=== PATIENT | female | born 1960 | race Caucasian/White ===

== ENCOUNTER → 2018-01-19 | Outpatient (CLI) | payer OTHER ==
[2018-01-19 12:31] VITALS: BP 156/75; PULSE 69; RESP 18; TEMP 97.8
--- NOTE | 2018-01-20 09:22 | P.PAINCN ---
History of Present Illness - Reason for Consult Consult date: 01/19/18 - History of Present Illness This is the initial consultation visit for this 57 years old female with chronic history of severe low back pain, and neck pain, she reported that the pain started 2 years ago , after she came home from work, while she was bending over to take off, her shoes She felt a pop in her back, and then she started feeling severe low back pain and numbness and tingling sensation, and physical therapy and also she had interventional pain procedure done at different pain clinic, without any benefit , she continued to have severe pain intensity of the pain fluctuates between 7/ 10 with rest , increases to 10 hours and with any activity, the pain interfering with her quality of life and ability to function and do activity of daily livings, she had no fever or night sweats, she denies any change in the bowel movement or urination, and the current medication is helping only slightly to improve her pain, she was evaluated by a neurosurgeon, and recommended to try interventional pain procedure again. Past Medical History Past Medical History: COPD, Musculoskeletal Disorder, Osteoarthritis (OA) Additional Past Medical History / Comment(s): LUMBAR AND NECK PAIN, STATES BULDGING AND HERNIATED DISCS, DDD, USES CANE PRN., HX OF NICKED BOWEL WITH SURGERY AND WAS ON LIFE SUPPORT FOR 1 WEEK. ([place] 2005). History of Any Multi-Drug Resistant Organisms: None Reported Past Surgical History: Appendectomy, Hysterectomy Additional Past Surgical History / Comment(s): OOPHERECTOMY WITH NICKED BOWEL AND HAD COLOSTOMY AND THEN REVERSAL., LAPAROSCOPY, C-SEC X2. Past Anesthesia/Blood Transfusion Reactions: No Reported Reaction Past Psychological History: Anxiety, Depression Smoking Status: Current every day smoker Past Alcohol Use History: None Reported Additional Past Alcohol Use History / Comment(s): STARTED SMOKING AGE 13, SMOKES 1 PPD. SMOKING FOR 46 YEARS ON AND OFF. Past Drug Use History: Marijuana Additional Drug Use History / Comment(s): RECENT MARIJUANA USE. - Past Family History Mother Family Medical History: No Reported History Medications and Allergies Home Medications Medication Instructions Recorded Confirmed Type Ascorbic Acid [Vitamin C] 1,000 mg PO DAILY 01/18/18 01/19/18 History Aspirin [Adult Low Dose Aspirin EC] 81 mg PO DAILY 01/18/18 01/19/18 History Cholecalciferol [Vitamin D3] 1,000 unit PO DAILY 01/18/18 01/19/18 History Cyclobenzaprine [Flexeril] 10 mg PO TID PRN 01/18/18 01/19/18 History DULoxetine HCL [Cymbalta] 90 mg PO DAILY 01/18/18 01/19/18 History Gabapentin [Neurontin] 600 mg PO TID 01/18/18 01/19/18 History HYDROcodone/APAP 5-325MG [[place] 1 tab PO Q6HR PRN 01/18/18 01/19/18 History 5-325] Magnesium 500 mg PO DAILY 01/18/18 01/19/18 History traMADol HCL [Ultram] 50 mg PO TID PRN 01/18/18 01/19/18 History Allergies Allergy/AdvReac Type Severity Reaction Status Date / Time No Known Allergies Allergy Verified 01/19/18 12:19 Physical Exam Vitals: Vital Signs Temp Pulse Resp BP Pulse Ox 01/19/18 12:22 97.8 F 69 18 156/75 97 Social history : smoker , NO ETOH , NO Illegal drugs use . Family history : positive for Review of Systems : 1- Constitutional : no chills , no fever , no night sweats , 2- Ears : no ear discharge , no change in hearing 3-Nose, Mouth ,Throat ; no bleeding gums, no sore throat , no epistaxis , 4-Cardiovascular : Denies chest pain, , no orthopnea , no palpitation 5-Respiratory : Denies cough , no dyspnea , no hemoptysis 6-Gastrointestinal :, no change in bowel habits , no coffee- ground emesis . 7-Genitourinary : No hematuria , no discharge , no incontinence, 8-Musculoskeletal : ++ gait dysfunction , report low back pain , report neck pain , 9- Neurological : no ataxia , no tremor , no sezure , 10-Psychatric , no suicidal ideation no hallucination 11- Endocrine : no cold intolerence , no polyuria , no polydypsia , 12-Hematologic : no easy bleeding , no easy brusing , 13-Allergic / immunology : no angioedema , no wheezing ,no allergic rhinitis 14-Integumentary : no brttle nails , no change hair / nails , no foot/leg ulcers . Physical Examinations : 1-Constitutional : Cooperative , not in acute distress . 2-HEENT : nech ; supple , no Lymphadenopathy , no Thyromegaly , :eyes , no icterus, no photophobia . ENT : , normal oropharynx , no Thrush 3- Respiratory : Chest clear to auscultations Bilaterally , no wheezing . 4- Cardiovascular : regular rate and rhythem , S1 , S2 , no S3 , no S4. 5- Gastrointestinal: abdomen soft no tenderness , no organomegally . 6- Genitourinary : Defferred . 7-Integumentary : No cellulitis , no ulcers , normal skin turgor , no cyanotic . 8- neurologic : Cranial nerve II to XII intact , no focal neurological deffecit 9-psychatric : alert , oriented X 3 , appropriate affect , intact judgment and insight . 10-Lymphatic : no Lymphadenopathy. 11- musculoskeltal: normal gait Cervical Spine motor stregnth in the deltoid and biceps, normal right side , normal Left side motor stregnth biceps and the wrist extensors normal right side ,normal left side . motor stregnth in the triceps muscle . normal Right side , normal Left side deep tendon reflexes normal at the biceps , normal at Brachioradialis , normal at triceps. positive cervical facet loading test . Lumber spine moter stegnth lower extremities ,thigh and legs 4/5 Right side , 4/5 Left side deep tendon reflexes : normal Knee Jerk , normal ankle Jerk positive lumber facet Loading Test Range of motion of the lumbar spine Flexion 30 degrees, extension 10 degrees strait leg raising test , positive at 30 degree Fabere test positive RT and positive LT . Sever tenderness over the Sacroiliac joint on the R and L sides Results Comments: MRI of the lumbar spine lumbar facet arthropathy and lumbar degenerative disc disease mainly at L4-L5 Assessment and Plan Plan: Assessment and plan=1-lumbar spondylosis with lumbar facet arthropathy without myelopathy, 2-lumbar radiculopathy. she will be scheduled to have lumbar diagnostic medial branch block at L43/L4 5/L5-S1 and if she had good result then she will be good candidate to have radiofrequency ablation of the medial branch lumbar area. Procedure risks and benefits and alternatives discussed with the patient she agreed with the preceding, patient should continue to get her pain medication ,from her primary care Time with Patient: Greater than 30 PQRS Measure Charge Sheet Measure #130: Documentation of Current Meds in Medical Chart: Patient's medications documented in chart Measure #226: Tobacco Use: Screen & Cessation Intervention: Pt screened for tobacco use AND intervention given Measure #111: Pneumonia Vaccination: Pneumococcal vaccine NOT administered or previously given Measure #47: Advance Care Plan: Advance care planning discussed & documented, pt chose/unable to give Measure #412: Opioid Treatment Agreement: No documentation of signed opioid treatment agreement Measure #408: Opioid Therapy Follow-up Evaluation: Patient had NO f/u eval minimum every 3 months during opioid therapy Measure #317: Preventitive Care & Scrn High Bld Press & F/U: Pre-hypertensive or hypertensive BP documented, pt will f/u with PCP Measure #128: Body Mass Index (BMI) Screening & Follow-up: BMI documented ABOVE normal parameters - f/u documented Measure #131: Pain Assessment & Follow-up: Pain positive & plan documented, Follow-up scheduled Measure #431: Unhealthy Alcohol Use Preventative Care & Scrn: Patient not identified as an unhealthy alcohol user PQRS Narrative: Smoking Status Current every day smoker Do You Want the Pneumonia No Vaccine AT THIS TIME? Blood Pressure 156/75 Pain Intensity [Neck] 8 Pain Intensity [Lower Back] 8 Scale Used Numeric (1 - 10) Hx Alcohol Use (MH) No Home Medications: Ambulatory Orders Ascorbic Acid [Vitamin C] 1,000 mg PO DAILY 01/18/18 Aspirin [Adult Low Dose Aspirin EC] 81 mg PO DAILY 01/18/18 Cholecalciferol [Vitamin D3] 1,000 unit PO DAILY 01/18/18 Cyclobenzaprine [Flexeril] 10 mg PO TID PRN 01/18/18 DULoxetine HCL [Cymbalta] 90 mg PO DAILY 01/18/18 Gabapentin [Neurontin] 600 mg PO TID 01/18/18 HYDROcodone/APAP 5-325MG [[place] 5-325] 1 tab PO Q6HR PRN 01/18/18 Magnesium 500 mg PO DAILY 01/18/18 traMADol HCL [Ultram] 50 mg PO TID PRN 01/18/18
== END | disposition home or self-care (01) ==
LOC: PNWHC3 12:11
PROVIDERS: ATTEND Specialist
DX: M47.26 Other spondylosis with radiculopathy, lumbar region (principal); M46.96 Unspecified inflammatory spondylopathy, lumbar region; F17.200 Nicotine dependence, unspecified, uncomplicated; Z79.899 Other long term (current) drug therapy; Z79.82 Long term (current) use of aspirin; Z79.891 Long term (current) use of opiate analgesic
CPT/HCPCS: 99211

== ENCOUNTER 2018-02-04 09:28 | Day surgery (SDC) | payer OTHER ==
[2018-01-29 12:02] VITALS: BMI 27.8
[~2018-02-04 09:28] MED LIST: LACTATED RINGERS 1,000 ML IV SCH
[2018-02-04 09:58] VITALS: RESP 16; TEMP 97.9
[2018-02-04] MEDS ORDERED: LIDOCAINE 1% 20 ML VIAL (10MG/ML) FOR IV START INTRADERMA ONE (10:08)
--- NOTE | 2018-02-04 10:44 | P.PCN ---
Date of Procedure: 02/04/18 Surgeon: Dixie Trujillo Pathology: none sent Condition: stable Disposition: PACU Description of Procedure: REOPERATIVE DIAGNOSIS : 1- Lumbar spondylosis with Facet Arthropathy without myelopathy . 2- Lumber degenerative disc disease POSTOPERATIVE DIAGNOSIS: 1- Lumbar spondylosis with Facet Arthropathy without myelopathy . 2- Lumber degenerative disc disease PROCEDURE: Diagnostic bilateral , L4 -5 , and L5-S1 medial branch block under fluoroscopy ANESTHESIA: Local with 1% lidocaine; IV moderate sedation sedation with fentanyl . EBL: Negligible COMPLICATION: None. PROCEDURE INDICATION: Chronic low back pain secondary to Facet arthropathy unresponsive to conservative treatment. PROCEDURE DESCRIPTION: the patient was seen and identified in the preop holding area , risks and benefits and possible complications of the procedure and alternatives were discussed with the patient, and the patient agreed to proceed with the procedure and signed the consent. IV was started and vital signs monitored during the procedure and fluoroscopy was used to maximize the benefit and accuracy of the needle placement, sedation was given to decrease patient anxiety, patient was taken to the procedure room and placed in prone position vital signs monitored. The patient was brought into the procedure room and placed in prone position. Skin was prepped with Chloraprep and draped in a sterile manner. Lidocaine 1 % was used to numb the skin up at the target points that were chosen as follows : at the L5-S1 level which corresponds to the dorsal ramus of L5 the target points were at the superior medial aspect of the sacral ala on each side of the spine on the AP view of fluoroscopy, and for the L3 and L4 medial branches the target points were the connection between the transverse process and the superior to go process of L4 and L5 respectively on the oblique views of fluoroscopy. I used 22-gauge 3-1/2 inch Quincke spinal needles for this procedure and after contacting bone at the target points mentioned above I injected 1 mL of a mixture of Kenalog 40 mg +5 MLS of Ropivacaine 0.5% PF . Patient tolerated procedure well. At the end of the procedure the needles removed and a bandage applied after the skin was cleaned the cleaning solution. patient was then taken to the recovery room in stable condition and monitored in the recovery room for 20-30 minutes and discharged home in stable condition after discharge criteria met .
[2018-02-04] MEDS ORDERED: IV FLUID CONTINUATION 800 ML IV ONE (10:51)
--- NOTE | 2018-02-04 11:02 | FL ---
EXAMINATION TYPE: FL guided pain mgmt statistic DATE OF EXAM: 02/04/2018 HISTORY: Flouroscopy time 6 seconds of fluoroscopy provided. IMPRESSION: 1. Fluoroscopy time.
[2018-02-04 11:09] VITALS: BP 114/67; PULSE 64
== END 2018-02-04 11:28 | disposition home or self-care (01) ==
LOC: ORPAIN 09:28
PROVIDERS: ATTEND Anesthesiology
DX: G89.29 Other chronic pain (principal); M47.816 Spondylosis without myelopathy or radiculopathy, lumbar region; M51.36 Other intervertebral disc degeneration, lumbar region
CPT/HCPCS: 64493; 64494; J3301; J3010

== ENCOUNTER → 2018-02-18 | Day surgery (SDC) | payer OTHER ==
[2018-02-11 16:27] VITALS: BMI 27.8
[~2018-02-18] MED LIST changes: -LACTATED RINGERS 1,000 ML IV SCH; +SODIUM CHLORIDE 0.9% 500 ML 500 ML IV SCH
[2018-02-18 07:27] VITALS: RESP 18; TEMP 98
--- NOTE | 2018-02-18 09:08 | P.PCN ---
Date of Procedure: 02/18/18 Procedure(s) Performed: PREOPERATIVE DIAGNOSIS : 1- Lumbar spondylosis with Facet Arthropathy without myelopathy . POSTOPERATIVE DIAGNOSIS: 1- Lumbar spondylosis with Facet Arthropathy without myelopathy . PROCEDURE: Diagnostic bilateral L3 -4 , L4 -5 , and L5-S1 medial branch block under fluoroscopy ANESTHESIA: moderate sedation with intravenous Versed 2 mg . EBL: Minimal COMPLICATION: None. IV FLUIDS: 100 mL of normal saline. PROCEDURE INDICATION: Chronic low back pain secondary to Facet arthropathy unresponsive to conservative treatment. PROCEDURE DESCRIPTION: the patient was seen and identified in the preop holding area , risks and benefits and possible complications of the procedure and alternative were discussed with the patient, and the patient agreed to proceed with the procedure and signed the consent IV was started and vital signs monitored during the procedure and fluoroscopy was used to maximize the benefit and accuracy of the needle placement, and sedation was given to decrease patient anxiety, patient was taken to the procedure room and placed in prone position vital signs monitored in the back prepped with chlorhexidine X3 then under strict sterile technique using a right oblique fluoroscopy ,the junction of the transverse process and the superior articulating process of the right L3- 4 , L4- 5, and L5-S1 vertebra which corresponding to the fluoroscopy image of the eye of the Sacha dog on the block side for the medial branches and subsequently , after local infiltration of skin and subcu tissuies with Ropivacaine 0.5 % , one mL at each level , then 25-gauge Quincke-type needles , 3 needle was used , each one of them placed at the junction of the base of the transverse process and the superior articular process at the appropriate level, and the needle was advanced until the periosteum contacted, needle placement confirmed with AP oblique and lateral view and after appropriate needle placement confirmed, and after negative aspiration for heme and CSF and there was no paresthesia 1-1/2 mL of Ropivacaine 0.5% mixed with 20 mg Kenalog , then half mL injected at each level after negative aspiration the needle subsequently removed and the same procedure repeated for the left side at left side at L3-4, L4- 5 and L5-S1 levels. At the end of the procedure and the needles removed and a bandage applied after the skin was cleaned the cleaning solution patient taken to recovery room in stable condition and monitors in the recovery room for 20-30 minutes and discharged home in stable condition after discharge criteria met and patient will follow up with the pain clinic in 2-4 weeks
--- NOTE | 2018-02-18 09:25 | FL ---
EXAMINATION TYPE: FL guided pain mgmt statistic DATE OF EXAM: 02/18/2018 HISTORY: Flouroscopy time 9 seconds of fluoroscopy provided. IMPRESSION: 1. Fluoroscopy time.
[2018-02-18 09:58] VITALS: PULSE 68
[2018-02-18 10:01] VITALS: BP 136/65
== END ==
LOC: ORPAIN 06:56
PROVIDERS: ATTEND Specialist
DX: G89.29 Other chronic pain (principal); M47.816 Spondylosis without myelopathy or radiculopathy, lumbar region
CPT/HCPCS: 64493; 64494; 64495; J2250; J3301; 99152

== ENCOUNTER → 2018-03-22 | Outpatient (CLI) | payer OTHER ==
[2018-03-22 14:09] VITALS: BP 165/81; PULSE 76; RESP 16
--- NOTE | 2018-03-22 14:12 | P.PN ---
Subjective Progress Note Date: 03/22/18 Principal diagnosis: Lumbar spondylosis Radha presents for follow-up today after having 2 medial branch blocks of her lumbar spine. She reports she had excellent relief for about 4-5 days. During that time she reports that a lot of her back pain was significantly better and numbness and tingling in her upper thighs significantly improved but she continued to have numbness and tingling in her lower legs. She reports that she 's had repetitive frequency ablation done in the past and a different clinic, had good improvement and is inquiring about that at this time. She continues of low back pain which is worse with worsened extension and flexion of the lumbar spine. Reports numbness and tingling bilateral lower extremities from the knees down and sometimes in the thighs. She denies any weakness in her legs. Denies any bowel or bladder discomfort or incontinence. Objective - Vital Signs Vital signs: Vital Signs Temp Pulse 76 03/22/18 14:03 Resp 16 03/22/18 14:03 BP 165/81 03/22/18 14:03 Pulse Ox 98 03/22/18 14:03 Intake & Output 03/21/18 03/22/18 03/22/18 18:59 06:59 18:59 Weight 68.946 kg - Exam General: Awake and alert oriented 3 no distress Respiratory exam: No audible wheezing no accessory muscle usage Cardiovascular exam: regular rate, palpable bilateral pulses, no lower extremity edema Abdominal exam: No distention nontender to palpation Cervical spine: Normal alignment, Spurling's negative, facet loading negative Lumbar spine: Loss of lumbar lordosis, normal alignment, tender to palpation over bilateral paraspinal muscles, facet loading is positive bilaterally. Straight leg raise is negative. Sacroiliac joints: Nontender to palpation, ANUP is negative, Gaenselon negative Neuro exam: Normal sensation in bilateral upper extremities, deep tendon reflexes are 2+ bilateral upper extremities. Normal sensation in bilateral lower extremities. Deep tendon reflexes are 2+ in lower extremities Psych exam: Cooperative, appropriate mood Assessment and Plan Assessment: Lumbar spondylosis without myelopathy Plan: Discussed with the patient the risks benefits and alternatives to having radiofrequency ablation of the lumbar spine. The patient is in agreement like to move forward with the radiofrequency ablation. I discussed with the patient that she should continue to exercise daily and move freely after the radiofrequency ablation in order to avoid having surgery as she has requested. I will offer her physical therapy which she reports she still has home exercises to be done from her previous physical therapy session Time with Patient: Less than 30
== END | disposition home or self-care (01) ==
LOC: PNWHC3 13:24
PROVIDERS: ATTEND Hospitalist
DX: M47.816 Spondylosis without myelopathy or radiculopathy, lumbar region (principal)
CPT/HCPCS: 99211

== ENCOUNTER 2018-04-12 06:54 | Day surgery (SDC) | payer OTHER ==
[2018-04-08 13:50] VITALS: BMI 27.6
[2018-04-12] MEDS ORDERED: LACTATED RINGERS 1,000 ML IV ONE (07:25)
[2018-04-12] MEDS ORDERED: LIDOCAINE 1% 20 ML VIAL (10MG/ML) FOR IV START INTRADERMA ONE (07:25)
[2018-04-12 07:29] VITALS: RESP 17; TEMP 98.4
--- NOTE | 2018-04-12 08:29 | P.PCN ---
Date of Procedure: 04/12/18 Procedure(s) Performed: PREOPERATIVE DIAGNOSIS: 1-Lumbar Spondylosis with Facet Arthropathy without myelopathy. POSTOPERATIVE DIAGNOSIS: 1- Lumbar Spondylosis with Facet Arthropathy without myelopathy. PROCEDURES : Left Radiofrequency thermocoagulation, L3-L4, L4-L5, and L5-S1 medial branch, with fluoroscopic guidance ANESTHESIA: Moderate sedation with intravenous versed 2 mg and fentaneyl 100 mcg, and local infiltration with Ropivacaine 0.5 % . EBL: Minimal PROCEDURE INDICATION: The patient with low back pain secondary to lumbar facet arthropathy who had more than 50% relief of her pain with previous diagnostic lumbar medial branch block with bupivacaine. PROCEDURE DESCRIPTION / TECHNIQUE: The patient was seen and identified in the preoperative area. Risks, benefits, complications, including but not limited to risk of infection ,bleeding , allergic reactions to the medications and no complete pain releife , and alternatives were discussed with the patient, the patient agreed to proceed with the procedure and signed the consent. IV was started. Vital signs remained stable throughout the procedure. Patient was taken to the OR and time out was completed. The patient was placed in the prone position on the procedure table. The lumber area was prepped and draped in the usual sterile fashion. . Vital signs were closely monitored during the procedure .IV sedation was used during the procedure to decrease patients anxiety. Using AP and then oblique fluoroscopy, the ``eye of the Sacha dog corresponding to the connection between the superior and transverse articular processes of left L3, L4, and L5 were identified, marked, and localized with 1 % lidocaine. Subsequently, a 18 [id number] radiofrequency cannula with a 10- mm active tip was advanced guided by fluoroscopy to each of the``eyes of the Sacha dog at left L3, L4, and L5. Each site then underwent sensory testing at 50 Hz and 0 to 1 volt and motor testing at 2.5 Hz and 0 to 3 volt with local stimulation, but no radicular symptoms down the legs. Thereafter the left L3-4, L4-5, and L5-S1 sites underwent radiofrequency thermocoagulation at 80 degrees celsius for 90 seconds after injecting 0.5 ml of PF Ropivacaine 1ml, then after the thermocoagulation done , 1 ml of the block solution containing Kenalog 40 mg and 3 ml of Ropivacaine 0.5% was injected at the left L3-4 , L4 -5 , and L5-S1, levels after negative aspiration of CSF and blood and with no paresthesias. Cannulas were retracted while injecting lidocaine 1% until the needle is out. . At the end of the procedure, the skin was cleansed and bandages were applied. COMPLICATIONS: No acute complications. DISPOSITION / PLANS: The patient was placed in a supine position and transferred to the recovery area in a stable condition for observation and was discharged from the recovery room after meeting discharge criteria. Home discharge instructions given to the patient by the staff. The patient was reexamined prior to discharge. The patient will schedule a follow up in the clinic in 2-4 weeks.
[2018-04-12] MEDS ORDERED: IV FLUID CONTINUATION 1,000 ML IV ONE (08:33)
--- NOTE | 2018-04-12 08:37 | FL ---
EXAMINATION TYPE: FL guided pain mgmt statistic DATE OF EXAM: 04/12/2018 HISTORY: Flouroscopy time 6 seconds of fluoroscopy provided. IMPRESSION: 1. Fluoroscopy time.
[2018-04-12 08:49] VITALS: BP 120/76; PULSE 75
== END 2018-04-12 09:03 | disposition home or self-care (01) ==
LOC: ORPAIN 06:54
PROVIDERS: ATTEND Specialist
DX: M47.816 Spondylosis without myelopathy or radiculopathy, lumbar region (principal)
CPT/HCPCS: 64635; 64636 ×2; J2250; J3301; J3010; 99152

== ENCOUNTER 2018-05-05 08:23 | Day surgery (SDC) | payer OTHER ==
[2018-04-28 15:34] VITALS: BMI 27.6
[2018-05-05 09:13] VITALS: RESP 16; TEMP 97.6
[2018-05-05] MEDS ORDERED: LIDOCAINE 1% 20 ML VIAL (10MG/ML) FOR IV START INTRADERMA ONE (09:14)
[2018-05-05] MEDS ORDERED: LACTATED RINGERS 1,000 ML IV ONE (09:14)
--- NOTE | 2018-05-05 10:21 | P.PCN ---
Date of Procedure: 05/05/18 Surgeon: Dixie Trujillo Pathology: none sent Condition: stable Disposition: PACU Description of Procedure: PREOPERATIVE DIAGNOSIS: Lumbar spondylosis without myelopathy POSTOPERATIVE DIAGNOSIS: Lumbar spondylosis without myelopathy PROCEDURES : Right Radiofrequency thermocoagulation L3-L4, L4-L5, and L5-S1 medial branch, with fluoroscopic guidance ANESTHESIA: IV moderate conscious sedation with versed and fentanyl and local infiltration with lidocaine 1% 5 ml EBL: Minimal PROCEDURE INDICATION: The patient with low back pain secondary to lumbar facet arthropathy who had more than 50% relief of her pain with previous diagnostic lumbar medial branch block with bupivacaine. PROCEDURE DESCRIPTION / TECHNIQUE: The patient was seen and identified in the preoperative area. Risks, benefits, complications, including but not limited to risk of infection ,bleeding , allergic reactions to the medications and no complete pain relief , and alternatives were discussed with the patient, the patient agreed to proceed with the procedure and signed the consent. IV was started. Vital signs remained stable throughout the procedure. Patient was taken to the OR and time out was completed. The patient was placed in the prone position on the procedure table. The lumber area was prepped and draped in the usual sterile fashion. . Vital signs were closely monitored during the procedure .IV sedation was used during the procedure to decrease patients anxiety. The target points were identified as follows: For the L5-S1 level which corresponds to the dorsal ramus of L5 the target point was at the superior medial aspect of the sacral ala on the ---Rt- side of the spine on the AP view of fluoroscopy and for the L2, L3, and L4 medial branches the target points were at the connection between the transverse process and the superior articular process of L3, L4, and L5 vertebra respectively on the -Rt--- oblique view of fluoroscopy. skin was marked, and localized with 1% lidocaineat these points. Subsequently, an 18 [id number] radiofrequency needles with a 10-mm curved active tips were advanced guided by fluoroscopy to each of the target points mentioned above in a superior medial direction to get the active tips as parallel as possible to the medial branches tracks. AP, oblique, and lateral views of fluoroscopy were used to verify needle tips position. Each level then underwent motor testing at 2.5 Hz and 0 to 3 volt with local stimulation, but no radicular symptoms down the legs. Thereafter radiofrequency thermocoagulation at 80 degrees celsius for 90 seconds after injecting 1 ml of a solution made up of PF Marcaine 0.5%(3 mls) with 40 mg of Kenalog. At the end of the procedure, the skin was cleansed and bandages were applied. COMPLICATIONS: No acute complications. DISPOSITION / PLANS: The patient was placed in a supine position and transferred to the recovery area in a stable condition for observation and was discharged from the recovery room after meeting discharge criteria. Home discharge instructions given to the patient by the staff. The patient was reexamined prior to discharge. The patient will schedule a follow up in the clinic in 2-4 weeks.
[2018-05-05] MEDS ORDERED: IV FLUID CONTINUATION 1,000 ML IV ONE (10:31)
[2018-05-05 10:43] VITALS: BP 128/70; PULSE 67
--- NOTE | 2018-05-05 15:03 | FL ---
EXAMINATION TYPE: FL guided pain mgmt statistic DATE OF EXAM: 05/05/2018 HISTORY: Flouroscopy time 14 seconds of fluoroscopy provided. IMPRESSION: 1. Fluoroscopy time.
== END 2018-05-05 10:57 | disposition home or self-care (01) ==
LOC: ORPAIN 08:23
PROVIDERS: ATTEND Anesthesiology
DX: M47.816 Spondylosis without myelopathy or radiculopathy, lumbar region (principal); F17.210 Nicotine dependence, cigarettes, uncomplicated
CPT/HCPCS: 64636 ×2; 64635; J2250; J3301; J3010; 99152

== ENCOUNTER 2019-12-23 02:08 | Inpatient (IN) | payer OTHER ==
--- NOTE | 2019-12-23 02:39 | ED ---
ENT HPI - General Source: patient <AlexGreg cho - Last Filed: 12/23/19 04:20> <Yan Wright - Last Filed: 12/24/19 08:44> - General Chief complaint: ENT Stated complaint: Nose Bleed Time Seen by Provider: 12/23/19 02:31 - History of Present Illness Initial comments: Patient is a 59-year-old female presenting to the emergency department with a chief complaint of epistaxis. Patient is transferred from [facility]. Patient reports she had an episode of epistaxis earlier this week which spontaneously resolved. Patient reports today she began bleeding again lasting for approximately 1.5 hours prior she went to the emergency department and [facility]. Patient states that the other hospital bilateral Rhino Rocket's were placed although she continued to spit up blood clots with some bleeding through the Rhino Rocket. Patient reports most of the bleeding is coming from the left nostril although prior to the insertion of the Rhino Rocket , she had bleeding from both nostrils. He reports some nausea and states she continues to spit up more blood clots. She only takes aspirin and Plavix but not on any blood thinners. She does report some lightheadedness but no dizziness. (Greg Kenney) - Related Data Home Medications Medication Instructions Recorded Confirmed Gabapentin [Neurontin] 600 mg PO TID 01/18/18 12/23/19 DULoxetine HCL [Cymbalta] 120 mg PO DAILY 12/23/19 12/23/19 Allergies Allergy/AdvReac Type Severity Reaction Status Date / Time No Known Allergies Allergy Verified 12/23/19 06:23 Review of Systems ROS Other: All systems not noted in ROS Statement are negative. <Greg Kenney - Last Filed: 12/23/19 04:20> ROS Other: All systems not noted in ROS Statement are negative. <Yan Wright - Last Filed: 12/24/19 08:44> ROS Statement: Those systems with pertinent positive or pertinent negative responses have been documented in the HPI. Past Medical History Past Medical History: COPD, Osteoarthritis (OA) Additional Past Medical History / Comment(s): LUMBAR AND NECK PAIN, STATES BULDGING AND HERNIATED DISCS, DDD, USES CANE PRN., HX OF NICKED BOWEL WITH SURGERY AND WAS ON LIFE SUPPORT FOR 1 WEEK. ([place] 2006). History of Any Multi-Drug Resistant Organisms: None Reported Past Surgical History: Appendectomy, Bladder Surgery, Section, Hysterectomy Additional Past Surgical History / Comment(s): OOPHERECTOMY WITH NICKED BOWEL AND HAD COLOSTOMY AND THEN REVERSAL., LAPAROSCOPY, C-SEC X2. pain clinic procedures, COLONOSCOPY Past Anesthesia/Blood Transfusion Reactions: Family History of Problems w/ Anesthesia Additional Past Anesthesia/Blood Transfusion Reaction / Comment(s): father -PONV Past Psychological History: Anxiety, Depression Smoking Status: Current every day smoker Past Alcohol Use History: None Reported Past Drug Use History: Marijuana - Past Family History Mother Family Medical History: No Reported History <Greg Kenney - Last Filed: 12/23/19 04:20> - Past Family History Mother Family Medical History: No Reported History Additional Family Medical History / Comment(s): Cardiac disease Father Family Medical History: Diabetes Mellitus, Hypertension Additional Family Medical History / Comment(s): Cardiac disease <Yan Wright - Last Filed: 12/24/19 08:44> General Exam Limitations: no limitations General appearance: alert, anxious Head exam: Present: atraumatic, normocephalic, normal inspection Eye exam: Present: normal appearance, PERRL, EOMI Pupils: Present: normal accommodation ENT exam: Present: normal exam, mucous membranes moist. Absent: normal oropharynx (Bilateral Rhino Rocket's with small amounts of blood seeping through the left Rhino Rocket. Residual blood noted in the posterior pharynx.) Neck exam: Present: normal inspection, full ROM. Absent: tenderness Respiratory exam: Present: normal lung sounds bilaterally. Absent: respiratory distress, wheezes Cardiovascular Exam: Present: regular rate, normal rhythm, normal heart sounds Extremities exam: Present: normal inspection, full ROM. Absent: tenderness Back exam: Present: normal inspection, full ROM. Absent: tenderness Neurological exam: Present: alert, oriented X3 Psychiatric exam: Present: normal affect, normal mood Skin exam: Present: warm, dry, intact, normal color <Greg Kenney - Last Filed: 12/23/19 04:20> Course Vital Signs 12/23/19 12/23/19 12/23/19 02:14 03:00 04:16 Temperature 98.4 F Pulse Rate 111 H 144 H 125 H Respiratory 19 18 18 Rate Blood Pressure 154/82 141/74 153/87 O2 Sat by Pulse 98 97 98 Oximetry 12/23/19 12/23/19 12/23/19 04:43 05:54 06:20 Temperature Pulse Rate 120 H 110 H 120 H Respiratory 18 18 18 Rate Blood Pressure 102/58 107/60 141/70 O2 Sat by Pulse 98 97 Oximetry Medical Decision Making <Greg Kenney - Last Filed: 12/23/19 04:20> - Lab Data Result diagrams: 12/24/19 05:30 12/24/19 05:30 <Yan Wright - Last Filed: 12/24/19 08:44> - Medical Decision Making Patient is 59-year-old female presents emergency department with chief complaint of epistaxis. Patient transferred from [facility]. Patient arrived with bilateral Rhino Rocket's. She continues to be anxious and spitting up blood clots. On exam residual blood is noted in the posterior pharynx. Slight blood coming through the left Rhino Rocket. During ED stay, patient became tachycardic and slightly hypertensive. Patient given Ativan which helped the patient with the anxiety and her distress. She continues to be tachycardic. Patient already had 1 g of TXA prior to ED arrival. Patient was given additional 500 mg of TXA. This was confirmed with pharmacy. Patient will be admitted for further medical management. Delay in labs due to laboratory error. Case discussed with Dr. Wright. Admitting is Dr Hawk (Greg Kenney) I saw this patient in conjunction with the physician finance assistant. I performed independent history and physical exam. Agree with case management. Please note that the patient did continue to have moderate amount of bleeding despite having the bilateral nasal packings. I therefore repacked the patient's nose using the longer Rhino Rocket packings. The previous packings were removed. I did have the patient expel the clots that were present. I placed Afrin spray and then applied eye lateral Rhino Rocket packings. Patient tolerated procedure without complication. This did appear to stop the patient's bleeding (Yan Wright) - Lab Data Lab Results 12/23/19 12/23/19 12/23/19 Range/Units 03:03 03:03 03:03 WBC 11.1 H (3.8-10.6) k/uL RBC 3.13 L (3.80-5.40) m/uL Hgb 10.4 L (11.4-16.0) gm/dL Hct 31.0 L (34.0-46.0) % MCV 99.0 (80.0-100.0) fL MCH 33.3 (25.0-35.0) pg MCHC 33.6 (31.0-37.0) g/dL RDW 12.9 (11.5-15.5) % Plt Count 231 (150-450) k/uL Neutrophils % 82 % Lymphocytes % 13 % Monocytes % 4 % Eosinophils % 0 % Basophils % 0 % Neutrophils # 9.1 H (1.3-7.7) k/uL Lymphocytes # 1.4 (1.0-4.8) k/uL Monocytes # 0.4 (0-1.0) k/uL Eosinophils # 0.0 (0-0.7) k/uL Basophils # 0.0 (0-0.2) k/uL PT 10.1 (9.0-12.0) sec INR 1.0 (<1.2) APTT 18.3 L (22.0-30.0) sec Sodium 138 (137-145) mmol/L Potassium 4.2 (3.5-5.1) mmol/L Chloride 113 H (98-107) mmol/L Carbon Dioxide 21 L (22-30) mmol/L Anion Gap 4 mmol/L BUN 22 H (7-17) mg/dL Creatinine 0.59 (0.52-1.04) mg/dL Est GFR (CKD-EPI)AfAm >90 (>60 ml/min/1.73 sqM) Est GFR (CKD-EPI)NonAf >90 (>60 ml/min/1.73 sqM) Glucose 168 H (74-99) mg/dL Calcium 7.9 L (8.4-10.2) mg/dL Total Bilirubin 0.5 (0.2-1.3) mg/dL AST 26 (14-36) U/L ALT 14 (4-34) U/L Alkaline Phosphatase 51 (38-126) U/L Total Protein 5.5 L (6.3-8.2) g/dL Albumin 3.2 L (3.5-5.0) g/dL Blood Type Blood Type Confirm Blood Type Recheck Bld Type Recheck Status Antibody Screen Antibody Identification Direct Antiglob Test Crossmatch Spec Expiration Date 12/23/19 12/23/19 Range/Units 03:03 04:10 WBC (3.8-10.6) k/uL RBC (3.80-5.40) m/uL Hgb (11.4-16.0) gm/dL Hct (34.0-46.0) % MCV (80.0-100.0) fL MCH (25.0-35.0) pg MCHC (31.0-37.0) g/dL RDW (11.5-15.5) % Plt Count (150-450) k/uL Neutrophils % % Lymphocytes % % Monocytes % % Eosinophils % % Basophils % % Neutrophils # (1.3-7.7) k/uL Lymphocytes # (1.0-4.8) k/uL Monocytes # (0-1.0) k/uL Eosinophils # (0-0.7) k/uL Basophils # (0-0.2) k/uL PT (9.0-12.0) sec INR (<1.2) APTT (22.0-30.0) sec Sodium (137-145) mmol/L Potassium (3.5-5.1) mmol/L Chloride (98-107) mmol/L Carbon Dioxide (22-30) mmol/L Anion Gap mmol/L BUN (7-17) mg/dL Creatinine (0.52-1.04) mg/dL Est GFR (CKD-EPI)AfAm (>60 ml/min/1.73 sqM) Est GFR (CKD-EPI)NonAf (>60 ml/min/1.73 sqM) Glucose (74-99) mg/dL Calcium (8.4-10.2) mg/dL Total Bilirubin (0.2-1.3) mg/dL AST (14-36) U/L ALT (4-34) U/L Alkaline Phosphatase (38-126) U/L Total Protein (6.3-8.2) g/dL Albumin (3.5-5.0) g/dL Blood Type A Positive Blood Type Confirm A Positive Blood Type Recheck No Previous Record Bld Type Recheck Status CABO Indicated Antibody Screen POSITIVE Antibody Identification Clin Significant ABs Ruled Out Direct Antiglob Test Negative Crossmatch See Detail Spec Expiration Date 12/26/20192302 - EKG Data EKG Comments: Sinus tachycardia with short IN. Ventricular rate 140, IN 86, QRS duration 70, QTc 471. (Greg Kenney) Disposition Is patient prescribed a controlled substance at d/c from ED?: No Time of Disposition: 04:25 <Greg Kenney - Last Filed: 12/23/19 04:20> <Yan Wright - Last Filed: 12/24/19 08:44> Clinical Impression: Posterior epistaxis, Tachycardia Disposition: ADMITTED IP TO THIS HOSP Condition: Fair
[2019-12-23] MEDS ORDERED: TRANEXAMIC ACID 500 MG in SODIUM CHLORIDE 0.9% 100 ML IVPB ONE (03:00)
[2019-12-23] MEDS ORDERED: LORazepam 2 MG/ML INJ IV STA (03:06)
[2019-12-23] MEDS ORDERED: NALOXONE 0.4 MG/ML 1 ML VIAL IV PRN (04:14)
[2019-12-23] MEDS ORDERED: LORazepam 2 MG/ML INJ IV PRN (04:14)
[2019-12-23] MEDS ORDERED: ONDANSETRON 4 MG/2 ML VIAL IVP PRN (04:14)
[2019-12-23 04:32] LABS: Basophils % (A) 0 %; Eosinophils % (A) 0 %; HGB 10.4 gm/dL (11.4-16.0); Lymphocytes # (A) 1.4 k/uL (1.0-4.8); Lymphocytes % (A) 13 %; MCH 33.3 pg (25.0-35.0); MCHC 33.6 g/dL (31.0-37.0); Mean Platelet Volume 7.9; Monocytes # (A) 0.4 k/uL (0-1.0); Monocytes % (A) 4 %; Neutrophils # (A) 9.1 k/uL (1.3-7.7); Neutrophils % (A) 82 %; Platelet Count 231 k/uL (150-450); RBC 3.13 m/uL (3.80-5.40); RDW 12.9 % (11.5-15.5); WBC 11.1 k/uL (3.8-10.6)
[2019-12-23 04:44] LABS: ALT 14 U/L (4-34); AST 26 U/L (14-36); African American GFR (CKD) >90 (>60 ml/min/1.73 sqM); Albumin 3.2 g/dL (3.5-5.0); Alkaline Phosphatase 51 U/L (38-126); Anion Gap 4 mmol/L; Blood Urea Nitrogen 22 mg/dL (7-17); Calcium 7.9 mg/dL (8.4-10.2); Carbon Dioxide 21 mmol/L (22-30); Chloride 113 mmol/L (98-107); Glucose 168 mg/dL (74-99); Non-African American GFR(CKD) >90 (>60 ml/min/1.73 sqM); Potassium 4.2 mmol/L (3.5-5.1); Sodium 138 mmol/L (137-145); Total Bilirubin 0.5 mg/dL (0.2-1.3); Total Protein 5.5 g/dL (6.3-8.2)
[2019-12-23] MEDS ORDERED: OXYMETAZOLINE 0.05% NASL SPRAY 1 SPRAY BOTTLE NASAL ONE (05:45)
[2019-12-23 05:52] LABS: Prothrombin Time 10.1 sec (9.0-12.0)
[2019-12-23] MEDS: SODIUM CHLORIDE 0.9% 1,000 ML IV SCH ×2 (05:53→17:46)
[2019-12-23 06:03] LABS: Partial Thromboplastin Time 18.3 sec (22.0-30.0)
[2019-12-23] MEDS ORDERED: ALPRAZolam 0.5 MG TAB PO PRN (09:37)
--- NOTE | 2019-12-23 09:42 | P.HPIM ---
History of Present Illness This is a pleasant 59 years old female with past medical history of COPD, osteoarthritis, degenerative disc disease of the lumbar and cervical spine, anxiety and depression. She is a patient of Dr. Caballero. Patient presents because of significant epistaxis that started yesterday, patient thinks she lost about 3-4 large cups size of blood, she has some sore throat but denies any other pain. She denies chest pain or dyspnea, no headache. No dizziness. No abdominal pain or nausea vomiting Patient feels depressed. Denies suicidal ideation or hallucination On admission patient was tachycardic at 144 and currently at 138 BPM, rest of vitals are stable and patient is afebrile. Blood pressure is 139/62. She has mild leukocytosis of 11.1 K, hemoglobin 10.4, unknown baseline INR is 1.0, chloride slightly elevated at 113, rest of BMP is unremarkable and creatinine 0.5. Liver enzymes elevated EKG showing sinus tachycardia at 148, with QTC 471 Emergency room patient received lorazepam, Afrin and Protonix, tranexamic acid. Nasal packing was done on both nostrils and EGD ENT service were consulted from an EGD. Review of Systems CONSTITUTIONAL: No fever, no malaise, no fatigue. HEENT: No recent visual problems or hearing problems. Denied any sore throat. CARDIOVASCULAR: No orthopnea, PND, no palpitations, no syncope. PULMONARY: No shortness of breath, no cough, no hemoptysis. GASTROINTESTINAL: No diarrhea, no nausea, no vomiting, no abdominal pain. Normoactive bowel sounds. NEUROLOGICAL: No headaches, no weakness, no numbness. HEMATOLOGICAL: Denies any bleeding or petechiae. GENITOURINARY: Denies any burning micturition, frequency, or urgency. MUSCULOSKELETAL/RHEUMATOLOGICAL: Denies any joint pain, swelling, or any muscle pain. ENDOCRINE: Denies any polyuria or polydipsia. Past Medical History Past Medical History: COPD, Osteoarthritis (OA), Pneumonia Additional Past Medical History / Comment(s): Chronic lumbar/cervical pain/bulging discs/DDD, 2005 [place]-oophorectomy d/t cyst and had bowel gregorio-re section with colostomy later reversed. History of Any Multi-Drug Resistant Organisms: None Reported Past Surgical History: Appendectomy, Bowel Resection, Section, Hysterectomy Additional Past Surgical History / Comment(s): OOPHERECTOMY WITH NICKED BOWEL AND HAD COLOSTOMY AND THEN REVERSAL., LAPAROSCOPY, C-SEC X2. pain clinic procedures, COLONOSCOPY Past Anesthesia/Blood Transfusion Reactions: Family History of Problems w/ Anesthesia Additional Past Anesthesia/Blood Transfusion Reaction / Comment(s): father -PONV Smoking Status: Current every day smoker - Past Family History Mother Family Medical History: No Reported History Additional Family Medical History / Comment(s): Cardiac disease Father Family Medical History: Diabetes Mellitus, Hypertension Additional Family Medical History / Comment(s): Cardiac disease Medications and Allergies Home Medications Medication Instructions Recorded Confirmed Type Gabapentin [Neurontin] 600 mg PO TID 01/18/18 12/23/19 History DULoxetine HCL [Cymbalta] 120 mg PO DAILY 12/23/19 12/23/19 History Allergies Allergy/AdvReac Type Severity Reaction Status Date / Time No Known Allergies Allergy Verified 12/23/19 06:23 Physical Exam Vitals: Vital Signs Temp Pulse Pulse Resp BP BP Pulse Ox 12/23/19 06:30 97.6 F 138 H 18 139/62 96 12/23/19 06:20 120 H 18 141/70 97 12/23/19 05:54 110 H 18 107/60 98 12/23/19 04:43 120 H 18 102/58 12/23/19 04:16 125 H 18 153/87 98 12/23/19 03:00 144 H 18 141/74 97 12/23/19 02:14 98.4 F 111 H 19 154/82 98 Intake and Output 12/22/19 12/23/19 12/23/19 22:59 06:59 14:59 Other: Weight 76.204 kg 76.204 kg -GENERAL: The patient is alert and oriented x3, not in any acute distress. Well developed, well nourished. Patient looks anxious -HEENT: Pupils are round and equally reacting to light. EOMI. No scleral icterus. No conjunctival pallor. Normocephalic, atraumatic. No pharyngeal erythema. No thyromegaly. Bilateral nasal pack is in place CARDIOVASCULAR: S1 and S2 present. No murmurs, rubs, or gallops. PULMONARY: Chest is clear to auscultation, no wheezing or crackles. ABDOMEN: Soft, nontender, nondistended, normoactive bowel sounds. No palpable organomegaly. MUSCULOSKELETAL: No joint swelling or deformity. EXTREMITIES: No cyanosis, clubbing, or pedal edema. NEUROLOGICAL: Gross neurological examination did not reveal any focal deficits. SKIN: No rashes. No petechiae Results CBC & Chem 7: 12/23/19 03:03 12/23/19 03:03 Labs: Abnormal Lab Results - Last 24 Hours (Table) 12/23/19 12/23/19 12/23/19 Range/Units 03:03 03:03 03:03 WBC 11.1 H (3.8-10.6) k/uL RBC 3.13 L (3.80-5.40) m/uL Hgb 10.4 L (11.4-16.0) gm/dL Hct 31.0 L (34.0-46.0) % Neutrophils # 9.1 H (1.3-7.7) k/uL APTT 18.3 L (22.0-30.0) sec Chloride 113 H (98-107) mmol/L Carbon Dioxide 21 L (22-30) mmol/L BUN 22 H (7-17) mg/dL Glucose 168 H (74-99) mg/dL Calcium 7.9 L (8.4-10.2) mg/dL Total Protein 5.5 L (6.3-8.2) g/dL Albumin 3.2 L (3.5-5.0) g/dL Crossmatch 12/23/19 Range/Units 03:03 WBC (3.8-10.6) k/uL RBC (3.80-5.40) m/uL Hgb (11.4-16.0) gm/dL Hct (34.0-46.0) % Neutrophils # (1.3-7.7) k/uL APTT (22.0-30.0) sec Chloride (98-107) mmol/L Carbon Dioxide (22-30) mmol/L BUN (7-17) mg/dL Glucose (74-99) mg/dL Calcium (8.4-10.2) mg/dL Total Protein (6.3-8.2) g/dL Albumin (3.5-5.0) g/dL Crossmatch See Detail Thrombosis Risk Factor Assmnt - Choose All That Apply Any of the Below Risk Factors Present?: Yes Each Factor Represents 1 point: Abnormal pulmonary function (COPD), Age 41-60 years, Obesity (BMI >25) Other Risk Factors: No Other congenital or acquired thrombophilia - If yes, enter type in comment: No Thrombosis Risk Factor Assessment Total Risk Factor Score: 3 Thrombosis Risk Factor Assessment Level: Moderate Risk Assessment and Plan Assessment: Epistaxis Sinus tachycardia, secondary to her epistaxis Acute blood loss anemia COPD, not acute exacerbation Osteoarthritis Degenerative disc disease of the lumbar and cervical spine Zartan depression, not an active issue Plan: This is a pleasant 59 years old female who presents with epistaxis and tachyca rdia. Monitor for any signs of bleeding. Monitor hemoglobin, start him to Follow-up recommendation by ENT. In the emergency room patient ordered 1 unit of blood to be given, which I think is appropriate given the amount of blood she lost and she looks pale and tachycardic. Continue with IV fluid currently on normal saline at 75 mL/h. I think her tachycardia secondary to her blood loss, however we'll check TSH, continue with telemetry Patient has a nasal pack, we'll order a prophylactic antibiotic with Augmentin, Nicotine patch Labs and medication were reviewed.. Continue same treatment. Continue with symptomatic treatment. Resume home medication. Monitor lytes and vitals. DVT and GI prophylaxis. Further recommendations of the clinical course of the patient DVT prophylaxis: No heparin and in view of epistaxis for now GI Prophylaxis: Pepcid
[2019-12-23 10:33] LABS: HCT 27.4 % (34.0-46.0); MCH 32.2 pg (25.0-35.0); MCHC 31.7 g/dL (31.0-37.0); MCV 101.8 fL (80.0-100.0); Macrocytosis Slight; Mean Platelet Volume 7.2; Platelet Count 300 k/uL (150-450); RBC 2.69 m/uL (3.80-5.40); RDW 13.1 % (11.5-15.5); WBC 12.1 k/uL (3.8-10.6)
[2019-12-23 10:37] LABS: HGB 8.7 gm/dL (11.4-16.0)
[2019-12-23] MEDS: NICOTINE 21MG/24HR PATCH TRANSDERM SCH (10:46)
[2019-12-23] MEDS: AMOXIC-POT CLAV 500-125 MG 1 EACH TAB PO SCH ×2 (10:46→21:16)
--- NOTE | 2019-12-23 16:41 | P.GSCN ---
History of Present Illness Consult date: 12/23/19 Reason for Consult: epistaxis Requesting physician: Jose M E Sheet History of present illness: this is a 59-year-old white female with a one-day history of epistaxis. She states that this started on the right. She had 3 or 4 cups of blood out from the nose at home and went to an outside ER and had bilateral posterior nasal packs placed. She had continued oozing and therefore was transferred to this ER for further evaluation. She had hemoglobin of 10 here although a little bit lower this morning. Bleeding was controlled with inflating the nasal packs further here in the ER. She has not had epistaxis previously. She does have a history of hypertension which is generally controlled.she has no chronic nasal or sinus symptoms otherwise. Review of Systems All systems: negative - Constitutional Denies fever, Denies weight loss - EENT Eyes: denies blurred vision, denies diplopia, denies dry eye, denies itching Ears: deny: decreased hearing, ear discharge, earache Ears, nose, mouth and throat: Denies dysphagia - Breasts absent: change in shape - Cardiovascular Denies chest pain, Denies shortness of breath - Respiratory Denies cough - Gastrointestinal Reports as per HPI - Genitourinary Genitourinary: Reports as per HPI - Musculoskeletal Reports as per HPI - Integumentary Denies rash, Denies unusual bruising - Neurological Denies headaches, Denies syncope - Endocrine Reports as per HPI - Hematologic/Lymphatic Reports as per HPI - Allergic/Immunologic Reports as per HPI Past Medical History Past Medical History: COPD, Osteoarthritis (OA), Pneumonia Additional Past Medical History / Comment(s): Chronic lumbar/cervical pain/bulging discs/DDD, 2005 [place]-oophorectomy d/t cyst and had bowel gregorio- resection with colostomy later reversed. History of Any Multi-Drug Resistant Organisms: None Reported Past Surgical History: Appendectomy, Bowel Resection, Section, Hysterectomy Additional Past Surgical History / Comment(s): OOPHERECTOMY WITH NICKED BOWEL AND HAD COLOSTOMY AND THEN REVERSAL., LAPAROSCOPY, C-SEC X2. pain clinic procedures, COLONOSCOPY Past Anesthesia/Blood Transfusion Reactions: Family History of Problems w/ Anesthesia Additional Past Anesthesia/Blood Transfusion Reaction / Comm: father -PONV Smoking Status: Current every day smoker - Past Family History Mother Family Medical History: No Reported History Additional Family Medical History / Comment(s): Cardiac disease Father Family Medical History: Diabetes Mellitus, Hypertension Additional Family Medical History / Comment(s): Cardiac disease Medications and Allergies Home Medications Medication Instructions Recorded Confirmed Type Gabapentin [Neurontin] 600 mg PO TID 01/18/18 12/23/19 History DULoxetine HCL [Cymbalta] 120 mg PO DAILY 12/23/19 12/23/19 History Allergies Allergy/AdvReac Type Severity Reaction Status Date / Time No Known Allergies Allergy Verified 12/23/19 06:23 Surgical - Exam Vital Signs Temp Pulse Resp BP Pulse Ox 98.4 F 111 H 19 154/82 98 12/23/19 02:14 12/23/19 02:14 12/23/19 02:14 12/23/19 02:14 12/23/19 02:14 - General well developed, well nourished, no distress - Eyes normal ocular movement, no icteric - ENT nasal exam shows bilateral posterior Rhino Rocket nasal packs in place with minimal blood staining on the right and dry and white on the left. No posterior bleeding in the oropharynx. Therefore it was elected to remove the left-sided nasal pack as the bleeding is well controlled and it appeared to be from the right. The left nasal pack was removed without difficulty after cuffs were deflated. No abnormalities noted on the left. No bleeding was incited anteriorly or posteriorly on either side. - Neck no masses, trachea midline - Respiratory normal respiratory effort, clear to auscultation - Cardiovascular Rhythm: regular - Genitourinary no normal external genitalia, no normal perineum - Psychiatric oriented to time, oriented to person, oriented to place Results - Labs 12/23/19 10:07 12/23/19 03:03 Abnormal Lab Results - Last 24 Hours (Table) 12/23/19 12/23/19 12/23/19 Range/Units 03:03 03:03 03:03 WBC 11.1 H (3.8-10.6) k/uL RBC 3.13 L (3.80-5.40) m/uL Hgb 10.4 L (11.4-16.0) gm/dL Hct 31.0 L (34.0-46.0) % MCV (80.0-100.0) fL Neutrophils # 9.1 H (1.3-7.7) k/uL APTT 18.3 L (22.0-30.0) sec Chloride 113 H (98-107) mmol/L Carbon Dioxide 21 L (22-30) mmol/L BUN 22 H (7-17) mg/dL Glucose 168 H (74-99) mg/dL Calcium 7.9 L (8.4-10.2) mg/dL Total Protein 5.5 L (6.3-8.2) g/dL Albumin 3.2 L (3.5-5.0) g/dL Crossmatch 12/23/19 12/23/19 Range/Units 03:03 10:07 WBC 12.1 H (3.8-10.6) k/uL RBC 2.69 L (3.80-5.40) m/uL Hgb 8.7 L D (11.4-16.0) gm/dL Hct 27.4 L (34.0-46.0) % MCV 101.8 H (80.0-100.0) fL Neutrophils # (1.3-7.7) k/uL APTT (22.0-30.0) sec Chloride (98-107) mmol/L Carbon Dioxide (22-30) mmol/L BUN (7-17) mg/dL Glucose (74-99) mg/dL Calcium (8.4-10.2) mg/dL Total Protein (6.3-8.2) g/dL Albumin (3.5-5.0) g/dL Crossmatch See Detail Diabetes panel 12/23/19 Range/Units 03:03 Sodium 138 (137-145) mmol/L Potassium 4.2 (3.5-5.1) mmol/L Chloride 113 H (98-107) mmol/L Carbon Dioxide 21 L (22-30) mmol/L BUN 22 H (7-17) mg/dL Creatinine 0.59 (0.52-1.04) mg/dL Glucose 168 H (74-99) mg/dL Calcium 7.9 L (8.4-10.2) mg/dL AST 26 (14-36) U/L ALT 14 (4-34) U/L Alkaline Phosphatase 51 (38-126) U/L Total Protein 5.5 L (6.3-8.2) g/dL Albumin 3.2 L (3.5-5.0) g/dL Thyroid panel 12/23/19 Range/Units 10:07 TSH 0.912 (0.465-4.680) mIU/L Calcium panel 12/23/19 Range/Units 03:03 Calcium 7.9 L (8.4-10.2) mg/dL Albumin 3.2 L (3.5-5.0) g/dL Pituitary panel 12/23/19 12/23/19 Range/Units 03:03 10:07 Sodium 138 (137-145) mmol/L Potassium 4.2 (3.5-5.1) mmol/L Chloride 113 H (98-107) mmol/L Carbon Dioxide 21 L (22-30) mmol/L BUN 22 H (7-17) mg/dL Creatinine 0.59 (0.52-1.04) mg/dL Glucose 168 H (74-99) mg/dL Calcium 7.9 L (8.4-10.2) mg/dL TSH 0.912 (0.465-4.680) mIU/L Adrenal panel 12/23/19 Range/Units 03:03 Sodium 138 (137-145) mmol/L Potassium 4.2 (3.5-5.1) mmol/L Chloride 113 H (98-107) mmol/L Carbon Dioxide 21 L (22-30) mmol/L BUN 22 H (7-17) mg/dL Creatinine 0.59 (0.52-1.04) mg/dL Glucose 168 H (74-99) mg/dL Calcium 7.9 L (8.4-10.2) mg/dL Total Bilirubin 0.5 (0.2-1.3) mg/dL AST 26 (14-36) U/L ALT 14 (4-34) U/L Alkaline Phosphatase 51 (38-126) U/L Total Protein 5.5 L (6.3-8.2) g/dL Albumin 3.2 L (3.5-5.0) g/dL Assessment and Plan Assessment: right epistaxis Plan: patient will have the right nasal pack left in place for an additional 2 days for a total of 3 days and if she is fine for discharge otherwise then she may be discharged to home on continued prophylactic antibiotics such as currently Augmentin. She would need follow-up appointment in my office early next week Margarito or Thursday for right nasal pack removal with myself or my nurse practitioner. Control blood pressure in the meantime also with no strenuous activity heavy lifting or straining. Discharge disposition will otherwise be left up to her primary care service. If there are questions regarding this consultation please feel free to to contact me. Time with Patient: Greater than 30
[2019-12-23] MEDS: FERROUS SULFATE 325 MG TAB PO SCH (18:18)
[2019-12-23] MEDS ORDERED: SODIUM CHLORIDE 0.9% 500 ML 500 ML IV ONE (18:53)
--- NOTE | 2019-12-23 21:10 | CT ---
EXAMINATION TYPE: CT chest angio for PE DATE OF EXAM: 12/23/2019 COMPARISON: None HISTORY: elevated d-dimer CT DLP: 368.7 mGycm Automated exposure control for dose reduction was used. CONTRAST: Performed with IV Contrast, patient injected with 84cc mL of Isovue 370. There are 3-D post processed images. There is mild subsegmental atelectasis at the lung bases. There is no pleural effusion. There is no e vidence of a pulmonary mass. Heart size is normal. There is no pericardial effusion. Lungs are clear of infiltrate. Mediastinum is normal. There is no mediastinal adenopathy. Thoracic aorta is intact. There is no aneu rysm or dissection. There are no hilar masses. There is no evidence of filling defect in the pulmonar y arteries. Thoracic vertebra have normal spacing and alignment. Posterior elements are intact. There is no compr ession fracture. Bony thorax is intact. Sternum appears normal. IMPRESSION: Negative exam. No evidence of pulmonary embolism. Minimal subsegmental atelectasis at the lung bases.
[2019-12-23] MEDS: FAMOTIDINE 20 MG/2 ML VIAL IV SCH (21:16)
[2019-12-23 21:54] LABS: HCT 32.2 % (34.0-46.0); HGB 10.6 gm/dL (11.4-16.0); MCH 32.2 pg (25.0-35.0); MCHC 32.7 g/dL (31.0-37.0); MCV 98.3 fL (80.0-100.0); Mean Platelet Volume 7.7; Platelet Count 219 k/uL (150-450); RBC 3.28 m/uL (3.80-5.40); RDW 15.3 % (11.5-15.5); WBC 15.7 k/uL (3.8-10.6)
[2019-12-23 22:11] LABS: ALT 16 U/L (4-34); African American GFR (CKD) >90 (>60 ml/min/1.73 sqM); Albumin 3.4 g/dL (3.5-5.0); Anion Gap 6 mmol/L; Blood Urea Nitrogen 24 mg/dL (7-17); Calcium 8.1 mg/dL (8.4-10.2); Carbon Dioxide 21 mmol/L (22-30); Chloride 110 mmol/L (98-107); Glucose 105 mg/dL (74-99); Non-African American GFR(CKD) >90 (>60 ml/min/1.73 sqM); Sodium 137 mmol/L (137-145); Total Bilirubin 0.8 mg/dL (0.2-1.3); Total Protein 5.8 g/dL (6.3-8.2)
[2019-12-23 22:29] LABS: AST 30 U/L (14-36); Alkaline Phosphatase 47 U/L (38-126); Potassium 4.1 mmol/L (3.5-5.1)
[2019-12-24 06:28] LABS: Basophils # (A) 0.1 k/uL (0-0.2); Basophils % (A) 0 %; Eosinophils % (A) 0 %; HCT 29.3 % (34.0-46.0); HGB 9.8 gm/dL (11.4-16.0); Lymphocytes # (A) 2.6 k/uL (1.0-4.8); Lymphocytes % (A) 18 %; MCH 31.7 pg (25.0-35.0); MCHC 33.4 g/dL (31.0-37.0); Mean Platelet Volume 7.1; Monocytes # (A) 1.3 k/uL (0-1.0); Monocytes % (A) 9 %; Neutrophils # (A) 10.1 k/uL (1.3-7.7); Neutrophils % (A) 70 %; Platelet Count 236 k/uL (150-450); RBC 3.09 m/uL (3.80-5.40); RDW 15.3 % (11.5-15.5); WBC 14.6 k/uL (3.8-10.6)
[2019-12-24] MEDS: FERROUS SULFATE 325 MG TAB PO SCH ×2 (06:31→17:58)
[2019-12-24] MEDS: SODIUM CHLORIDE 0.9% 1,000 ML IV SCH ×2 (06:31→21:38)
[2019-12-24 07:03] LABS: African American GFR (CKD) >90 (>60 ml/min/1.73 sqM); Anion Gap 7 mmol/L; Blood Urea Nitrogen 16 mg/dL (7-17); Calcium 8.2 mg/dL (8.4-10.2); Carbon Dioxide 24 mmol/L (22-30); Chloride 108 mmol/L (98-107); Glucose 109 mg/dL (74-99); Non-African American GFR(CKD) >90 (>60 ml/min/1.73 sqM); Potassium 3.8 mmol/L (3.5-5.1); Sodium 139 mmol/L (137-145)
[2019-12-24] MEDS: NICOTINE 21MG/24HR PATCH TRANSDERM SCH (09:12)
[2019-12-24] MEDS: FAMOTIDINE 20 MG/2 ML VIAL IV SCH ×2 (09:12→21:36)
[2019-12-24] MEDS: DULoxetine HCL 60 MG CAPSULE.DR PO SCH (09:12)
[2019-12-24] MEDS: AMOXIC-POT CLAV 500-125 MG 1 EACH TAB PO SCH ×2 (09:13→21:36)
--- NOTE | 2019-12-24 10:20 | P.CRDCN ---
History of Present Illness Consult date: 12/24/19 Requesting physician: Bob Parsons Reason for Consult (text): Tachycardia Chief complaint: Epistaxis History of present illness: History of present illness: This is a 59-year-old female patient with no previous cardiac history, no history of hypertension. She has not followed with a paper twister. She denies having any stress test or heart catheterization in the past. Patient presented to the hospital due to epistaxis status post packing, seen by ENT and admitted to the cardiac stepdown unit. Initial hemoglobin 10.4 now at 9.8, WBC 14.6. Potassium 3.8, creatinine 0.45. Troponin negative. TSH 0.912. D-dimer was elevated and patient underwent CTA of the chest which was negative for pulmonary embolism. Minimal subsegmental atelectasis in the lung bases. Patient denies having any palpitations, chest pain, shortness of breath, anxiety. Review Of Systems: Constitutional: No fever, no chills. Reports weakness and fatigue. EENT: No headache. No dizziness. Reports epistaxis-control bleeding. Lungs: No shortness of breath, cough, no sputum production. No wheezing. Cardiovascular: No chest pain, no lower extremity edema. No palpitations. No paroxysmal nocturnal dyspnea. No orthopnea. No lightheadedness or dizziness. No syncopal episodes. Abdominal: No abdominal pain. No nausea, vomiting. No diarrhea. No constipation. No bloody or tarry stools.. No loss of appetite. Genitourinary: No dysuria, increased frequency, urgency. No urinary retention. Musculoskeletal: No myalgias. No muscle weakness, no gait dysfunction, no pepper quent falls. No back pain. No neck pain. Integumentary: No wounds, no lesions. No rash or pruritus. No unusual bruising. Neurologic: No aphasia. No facial droop. No change in mentation. No head injury. No headache. No paralysis. No paresthesia. Psychiatric: No depression. Denies anxiety. Endocrine: No abnormal blood sugars. Physical examination: Gen: This is a 59-year-old female. Patient is resting in bed and appears to be comfortable and in no acute distress. VS: Patient has been afebrile, heart rate currently 102, blood pressure 139/65, pulse ox 99% on room air. HEENT: Head is atraumatic, normocephalic. Pupils equal, round. Sclerae is anicteric. Nasal packing in the right nares. NECK: Supple. No JVD. No lymphadenopathy. No thyromegaly. LUNGS: Clear to auscultation. No wheezes or rhonchi. No intercostal retractions. HEART: Regular rate and rhythm. No murmur. ABDOMEN: Soft. Bowel sounds are present. No masses. No tenderness. EXTREMITIES: No pedal edema. No calf tenderness. NEUROLOGICAL: Patient is awake, alert and oriented x3. Cranial nerves 2 through 12 are grossly intact. Assessment: Sinus tachycardia Epistaxis Exertional dyspnea Active tobacco use and dependence Plan: Treat anemia and anxiety Obtain 2-D echocardiogram and Doppler study to assess cardiac structure and function No plan to start any new medications at this point Further recommendations to follow based on clinical course Thank you kindly for this consultation. Nurse practitioner note has been reviewed, I agree with documented findings and plan of care. Patient was seen and examined. Past Medical History Past Medical History: COPD, Osteoarthritis (OA), Pneumonia Additional Past Medical History / Comment(s): Chronic lumbar/cervical pain/bulging discs/DDD, 2006 [place]-oophorectomy d/t cyst and had bowel gregorio- resection with colostomy later reversed. History of Any Multi-Drug Resistant Organisms: None Reported Past Surgical History: Appendectomy, Bowel Resection, Section, Hysterectomy Additional Past Surgical History / Comment(s): OOPHERECTOMY WITH NICKED BOWEL AND HAD COLOSTOMY AND THEN REVERSAL., LAPAROSCOPY, C-SEC X2. pain clinic procedures, COLONOSCOPY Past Anesthesia/Blood Transfusion Reactions: Family History of Problems w/ Anesthesia Additional Past Anesthesia/Blood Transfusion Reaction / Comment(s): father -PONV Smoking Status: Current every day smoker - Past Family History Mother Family Medical History: No Reported History Additional Family Medical History / Comment(s): Cardiac disease Father Family Medical History: Diabetes Mellitus, Hypertension Additional Family Medical History / Comment(s): Cardiac disease Medications and Allergies Home Medications Medication Instructions Recorded Confirmed Type Gabapentin [Neurontin] 600 mg PO TID 01/18/18 12/23/19 History DULoxetine HCL [Cymbalta] 120 mg PO DAILY 12/23/19 12/23/19 History Allergies Allergy/AdvReac Type Severity Reaction Status Date / Time No Known Allergies Allergy Verified 12/23/19 06:23 Physical Exam Vitals: Vital Signs Temp Pulse Pulse Resp BP BP Pulse Ox 12/24/19 08:00 98.9 F 122 H 17 139/65 99 12/24/19 04:00 98.5 F 115 H 16 173/79 96 12/24/19 00:00 99.3 F 134 H 19 121/58 94 L 12/23/19 20:00 98.8 F 127 H 18 118/55 98 12/23/19 16:00 96 18 12/23/19 15:00 99.2 F 130 H 20 134/71 96 12/23/19 14:08 99.5 F 109 H 18 160/104 99 12/23/19 11:25 99.5 F 110 H 18 161/70 97 12/23/19 11:04 99.5 F 117 H 18 162/77 97 12/23/19 10:54 98.5 F 118 H 18 169/76 94 L Intake and Output 12/23/19 12/24/19 12/24/19 22:59 06:59 14:59 Other: Voiding Method Toilet Toilet Toilet # Voids 3 Weight 74 kg Results 12/24/19 05:30 12/24/19 05:30 Cardiac Enzymes 12/23/19 12/23/19 Range/Units 10:07 21:29 AST 30 (14-36) U/L Troponin I <0.012 (0.000-0.034) ng/mL CBC 12/23/19 12/23/19 12/24/19 Range/Units 10:07 21:29 05:30 WBC 12.1 H 15.7 H 14.6 H (3.8-10.6) k/uL RBC 2.69 L 3.28 L 3.09 L (3.80-5.40) m/uL Hgb 8.7 L D 10.6 L 9.8 L (11.4-16.0) gm/dL Hct 27.4 L 32.2 L 29.3 L (34.0-46.0) % Plt Count 300 219 236 (150-450) k/uL Comprehensive Metabolic Panel 12/23/19 12/24/19 Range/Units 21:29 05:30 Sodium 137 139 (137-145) mmol/L Potassium 4.1 3.8 (3.5-5.1) mmol/L Chloride 110 H 108 H (98-107) mmol/L Carbon Dioxide 21 L 24 (22-30) mmol/L BUN 24 H 16 (7-17) mg/dL Creatinine 0.43 L 0.45 L (0.52-1.04) mg/dL Glucose 105 H 109 H (74-99) mg/dL Calcium 8.1 L 8.2 L (8.4-10.2) mg/dL AST 30 (14-36) U/L ALT 16 (4-34) U/L Alkaline Phosphatase 47 (38-126) U/L Total Protein 5.8 L (6.3-8.2) g/dL Albumin 3.4 L (3.5-5.0) g/dL Current Medications Generic Name Dose Route Start Last Admin Trade Name Freq PRN Reason Stop Dose Admin Alprazolam 0.5 mg 12/23/19 09:37 12/23/19 10:46 Xanax PO 0.5 mg BID PRN Administration Anxiety Amoxicillin/Clavulanate Potassium 1 each 12/23/19 09:45 12/24/19 09:13 Augmentin 500-125 Mg PO 1 each BID MAG Administration Duloxetine HCl 120 mg 12/24/19 09:00 12/24/19 09:12 Cymbalta PO 120 mg DAILY MAG Administration Famotidine 20 mg 12/23/19 21:00 12/24/19 09:12 Pepcid IV 20 mg Q12HR MAG Administration Ferrous Sulfate 325 mg 12/23/19 17:30 12/24/19 06:31 Feosol PO 325 mg BID-W/MEALS MAG Administration Sodium Chloride 1,000 mls @ 75 mls/hr 12/23/19 04:15 12/24/19 06:31 Saline 0.9% IV Not Given .[id number] MAG Naloxone HCl 0.2 mg 12/23/19 04:14 Narcan IV Q2M PRN Opioid Reversal Nicotine 1 patch 12/23/19 09:45 12/24/19 09:12 Habitrol 21mg/24hr Patch TRANSDERM 1 patch DAILY MAG Administration Ondansetron HCl 4 mg 12/23/19 04:14 Zofran IVP Q8HR PRN Nausea And Vomiting Intake and Output 12/23/19 12/24/19 12/24/19 22:59 06:59 14:59 Other: Voiding Method Toilet Toilet Toilet # Voids 3 Weight 74 kg 12/24/19 05:30 12/24/19 05:30
--- NOTE | 2019-12-24 11:13 | P.PN ---
Subjective This is a pleasant 59 years old female with past medical history of COPD, osteoarthritis, degenerative disc disease of the lumbar and cervical spine, anxiety and depression. She is a patient of Dr. Caballero. Patient presents because of significant epistaxis that started yesterday, patient thinks she lost about 3-4 large cups size of blood, she has some sore throat but denies any other pain. She denies chest pain or dyspnea, no headache. No dizziness. No abdominal pain or nausea vomiting Patient feels depressed. Denies suicidal ideation or hallucination On admission patient was tachycardic at 144 and currently at 138 BPM, rest of vitals are stable and patient is afebrile. Blood pressure is 139/62. She has mild leukocytosis of 11.1 K, hemoglobin 10.4, unknown baseline INR is 1.0, chloride slightly elevated at 113, rest of BMP is unremarkable and creatinine 0.5. Liver enzymes elevated EKG showing sinus tachycardia at 148, with QTC 471 Emergency room patient received lorazepam, Afrin and Protonix, tranexamic acid. Nasal packing was done on both nostrils and EGD ENT service were consulted from an EGD. 12/24/2019 Patient is awake and alert, no more epistaxis, ENT evaluated the patient and they kept the nasal pack in the right side and removed from the left side. No more epistaxis. Patient remains tachycardic at 120 after 1 unit of blood transfusion and her hemoglobin went up 9.8 today. She has elevated d-dimer and she feels some dyspnea but no chest pain. TSH was unremarkable. On cardiology on the case, echocardiogram is elevated In view of elevated d-dimer 6 and her symptoms and signs, we recommend patient has CT angios of the chest to rule out PE, risks including but not limited to risk of ALLERGY and nephrotoxicity are explained to the patient and she verbalized understanding and acceptance and she wants to proceed with the test. Active Medications Generic Name Dose Route Start Last Admin Trade Name Freq PRN Reason Stop Dose Admin Alprazolam 0.5 mg 12/23/19 09:37 12/23/19 10:46 Xanax PO 0.5 mg BID PRN Administration Anxiety Amoxicillin/Clavulanate Potassium 1 each 12/23/19 09:45 12/24/19 09:13 Augmentin 500-125 Mg PO 1 each BID MAG Administration Duloxetine HCl 120 mg 12/24/19 09:00 12/24/19 09:12 Cymbalta PO 120 mg DAILY MAG Administration Famotidine 20 mg 12/23/19 21:00 12/24/19 09:12 Pepcid IV 20 mg Q12HR MAG Administration Ferrous Sulfate 325 mg 12/23/19 17:30 12/24/19 06:31 Feosol PO 325 mg BID-W/MEALS MAG Administration Sodium Chloride 1,000 mls @ 75 mls/hr 12/23/19 04:15 12/24/19 06:31 Saline 0.9% IV Not Given .[id number] MAG Naloxone HCl 0.2 mg 12/23/19 04:14 Narcan IV Q2M PRN Opioid Reversal Nicotine 1 patch 12/23/19 09:45 12/24/19 09:12 Habitrol 21mg/24hr Patch TRANSDERM 1 patch DAILY MAG Administration Ondansetron HCl 4 mg 12/23/19 04:14 Zofran IVP Q8HR PRN Nausea And Vomiting Review of Systems CONSTITUTIONAL: No fever, no malaise, no fatigue. HEENT: No recent visual problems or hearing problems. Denied any sore throat. CARDIOVASCULAR: No orthopnea, PND, no palpitations, no syncope. PULMONARY: No shortness of breath, no cough, no hemoptysis. GASTROINTESTINAL: No diarrhea, no nausea, no vomiting, no abdominal pain. Normoactive bowel sounds. NEUROLOGICAL: No headaches, no weakness, no numbness. HEMATOLOGICAL: Denies any bleeding or petechiae. GENITOURINARY: Denies any burning micturition, frequency, or urgency. MUSCULOSKELETAL/RHEUMATOLOGICAL: Denies any joint pain, swelling, or any muscle pain. ENDOCRINE: Denies any polyuria or polydipsia. Objective - Vital Signs Vital signs: Vital Signs Temp 98.9 F 12/24/19 08:00 Pulse 122 H 12/24/19 08:00 Resp 17 12/24/19 08:00 BP 139/65 12/24/19 08:00 Pulse Ox 99 12/24/19 08:00 Intake & Output 12/23/19 12/24/19 12/24/19 18:59 06:59 18:59 Intake Total 910 Balance 910 Weight 76.204 kg 74 kg Intake: Oral 600 Blood Product 310 Rc As-1 Unit 310 [id number] Other: Voiding Method Toilet Toilet Toilet # Voids 1 3 - Exam GENERAL: The patient is alert and oriented x3, not in any acute distress. Well developed, well nourished. -HEENT: Pupils are round and equally reacting to light. EOMI. No scleral icterus. No conjunctival pallor. Normocephalic, atraumatic. No pharyngeal erythema. No thyromegaly. Right side nasal pack is in place CARDIOVASCULAR: S1 and S2 present. No murmurs, rubs, or gallops. PULMONARY: Chest is clear to auscultation, no wheezing or crackles. ABDOMEN: Soft, nontender, nondistended, normoactive bowel sounds. No palpable organomegaly. MUSCULOSKELETAL: No joint swelling or deformity. EXTREMITIES: No cyanosis, clubbing, or pedal edema. NEUROLOGICAL: Gross neurological examination did not reveal any focal deficits. SKIN: No rashes. No petechiae - Labs CBC & Chem 7: 12/24/19 05:30 12/24/19 05:30 Labs: Abnormal Lab Results - Last 24 Hours (Table) 12/23/19 12/23/19 12/23/19 Range/Units 03:03 19:18 21:29 WBC 15.7 H (3.8-10.6) k/uL RBC 3.28 L (3.80-5.40) m/uL Hgb 10.6 L (11.4-16.0) gm/dL Hct 32.2 L (34.0-46.0) % Neutrophils # (1.3-7.7) k/uL Monocytes # (0-1.0) k/uL D-Dimer 1.10 H (<0.60) mg/L FEU Chloride (98-107) mmol/L Carbon Dioxide (22-30) mmol/L BUN (7-17) mg/dL Creatinine (0.52-1.04) mg/dL Glucose (74-99) mg/dL Calcium (8.4-10.2) mg/dL Total Protein (6.3-8.2) g/dL Albumin (3.5-5.0) g/dL Crossmatch See Detail 12/23/19 12/24/19 12/24/19 Range/Units 21:29 05:30 05:30 WBC 14.6 H (3.8-10.6) k/uL RBC 3.09 L (3.80-5.40) m/uL Hgb 9.8 L (11.4-16.0) gm/dL Hct 29.3 L (34.0-46.0) % Neutrophils # 10.1 H (1.3-7.7) k/uL Monocytes # 1.3 H (0-1.0) k/uL D-Dimer (<0.60) mg/L FEU Chloride 110 H 108 H (98-107) mmol/L Carbon Dioxide 21 L (22-30) mmol/L BUN 24 H (7-17) mg/dL Creatinine 0.43 L 0.45 L (0.52-1.04) mg/dL Glucose 105 H 109 H (74-99) mg/dL Calcium 8.1 L 8.2 L (8.4-10.2) mg/dL Total Protein 5.8 L (6.3-8.2) g/dL Albumin 3.4 L (3.5-5.0) g/dL Crossmatch Assessment and Plan Assessment: Epistaxis Sinus tachycardia, secondary to her epistaxis. Rule out PE for cardiac causes Acute blood loss anemia COPD, not acute exacerbation Osteoarthritis Degenerative disc disease of the lumbar and cervical spine Zartan depression, not an active issue Plan: This is a pleasant 59 years old female who presents with epistaxis and tachycardia. Monitor for any signs of bleeding. Monitor hemoglobin, continue with Augmentin, ENT team. The patient for discharge and follow-up as an outpatient. Cardiology consult, echocardiogram, CTA to rule out PE and the chest, Nicotine patch Labs and medication were reviewed.. Continue same treatment. Continue with symptomatic treatment. Resume home medication. Monitor lytes and vitals. DVT and GI prophylaxis. Further recommendations of the clinical course of the pat ient DVT prophylaxis: No heparin and in view of epistaxis for now GI Prophylaxis: Pepcid
[2019-12-25 06:20] LABS: Basophils # (A) 0.1 k/uL (0-0.2); Basophils % (A) 0 %; Eosinophils # (A) 0.1 k/uL (0-0.7); Eosinophils % (A) 1 %; HCT 27.9 % (34.0-46.0); HGB 9.3 gm/dL (11.4-16.0); Lymphocytes # (A) 2.6 k/uL (1.0-4.8); Lymphocytes % (A) 21 %; MCH 32.1 pg (25.0-35.0); MCHC 33.3 g/dL (31.0-37.0); MCV 96.3 fL (80.0-100.0); Monocytes # (A) 0.9 k/uL (0-1.0); Monocytes % (A) 7 %; Neutrophils # (A) 8.2 k/uL (1.3-7.7); Neutrophils % (A) 67 %; Platelet Count 233 k/uL (150-450); RDW 15.2 % (11.5-15.5); WBC 12.4 k/uL (3.8-10.6)
[2019-12-25] MEDS: FERROUS SULFATE 325 MG TAB PO SCH ×2 (06:43→17:58)
[2019-12-25 06:45] LABS: African American GFR (CKD) >90 (>60 ml/min/1.73 sqM); Anion Gap 5 mmol/L; Blood Urea Nitrogen 10 mg/dL (7-17); Carbon Dioxide 26 mmol/L (22-30); Chloride 105 mmol/L (98-107); Glucose 107 mg/dL (74-99); Non-African American GFR(CKD) >90 (>60 ml/min/1.73 sqM); Potassium 3.6 mmol/L (3.5-5.1); Sodium 136 mmol/L (137-145)
[2019-12-25] MEDS: AMOXIC-POT CLAV 500-125 MG 1 EACH TAB PO SCH ×2 (08:54→20:32)
[2019-12-25] MEDS: DULoxetine HCL 60 MG CAPSULE.DR PO SCH (08:54)
[2019-12-25] MEDS: NICOTINE 21MG/24HR PATCH TRANSDERM SCH (08:55)
[2019-12-25] MEDS: FAMOTIDINE 20 MG/2 ML VIAL IV SCH (08:57)
--- NOTE | 2019-12-25 10:55 | P.PN ---
Subjective Progress Note Date: 12/25/19 History of present illness: This is a 59-year-old female patient with no previous cardiac history, no history of hypertension. She has not followed with a grain weigher. She denies having any stress test or heart catheterization in the past. Patient presented to the hospital due to epistaxis status post packing, seen by ENT and admitted to the cardiac stepdown unit. Initial hemoglobin 10.4 now at 9.8, WBC 14.6. Potassium 3.8, creatinine 0.45. Troponin negative. TSH 0.912. D-dimer was elevated and patient underwent CTA of the chest which was negative for pulmonary embolism. Minimal subsegmental atelectasis in the lung bases. Patient denies having any palpitations, chest pain, shortness of breath, anxiety. 12/24: Patient has not had any further bleeding from her right nares. Packing remains in place. She did have 2 episodes of tachycardia 1 at 840 this morning and 1 at 3 AM. These may be related to episodes of getting to the bathroom. Patient denies having any symptoms with these, no chest pain, lightheadedness, dizziness, palpitations. Heart rate is currently running in the 80s, blood pressure 148/73 and pulse ox 95% on room air. Hemoglobin is 9.3. Physical examination: Gen: This is a 59-year-old female. Patient is resting in bed and appears to be comfortable and in no acute distress. HEENT: Head is atraumatic, normocephalic. Pupils equal, round. Sclerae is anicteric. Nasal packing in the right nares. NECK: Supple. No JVD. No lymphadenopathy. No thyromegaly. LUNGS: Clear to auscultation. No wheezes or rhonchi. No intercostal retractions. HEART: Regular rate and rhythm. No murmur. ABDOMEN: Soft. Bowel sounds are present. No masses. No tenderness. EXTREMITIES: No pedal edema. No calf tenderness. NEUROLOGICAL: Patient is awake, alert and oriented x3. Cranial nerves 2 through 12 are grossly intact. Assessment: Sinus tachycardia Epistaxis Exertional dyspnea Active tobacco use and dependence Plan: Treat anemia and anxiety Echocardiogram report pending No plan to start new medications at this point No further cardiac workup is necessary and cardiology will follow on an as- needed basis Patient is cleared from cardiology for discharge Thank you kindly for this consultation. Nurse practitioner note has been reviewed, I agree with documented findings and plan of care. Patient was seen and examined. Objective - Vital Signs Vital signs: Vital Signs Temp 98.2 F 12/25/19 04:00 Pulse 93 12/25/19 04:00 Resp 16 12/25/19 04:00 BP 148/73 12/25/19 04:00 Pulse Ox 95 12/25/19 04:00 Intake & Output 12/24/19 12/25/19 12/25/19 18:59 06:59 18:59 Intake Total 600 118 Balance 600 118 Weight 73.4 kg Intake: Oral 600 118 Other: Voiding Method Toilet Toilet # Voids 1 3 - Labs CBC & Chem 7: 12/25/19 05:47 12/25/19 05:47 Labs: Abnormal Lab Results - Last 24 Hours (Table) 12/25/19 12/25/19 Range/Units 05:47 05:47 WBC 12.4 H (3.8-10.6) k/uL RBC 2.90 L (3.80-5.40) m/uL Hgb 9.3 L (11.4-16.0) gm/dL Hct 27.9 L (34.0-46.0) % Neutrophils # 8.2 H (1.3-7.7) k/uL Sodium 136 L (137-145) mmol/L Creatinine 0.39 L (0.52-1.04) mg/dL Glucose 107 H (74-99) mg/dL Calcium 8.0 L (8.4-10.2) mg/dL
--- NOTE | 2019-12-25 12:09 | P.PN ---
Subjective This is a pleasant 59 years old female with past medical history of COPD, osteoarthritis, degenerative disc disease of the lumbar and cervical spine, anxiety and depression. She is a patient of Dr. Caballero. Patient presents because of significant epistaxis that started yesterday, patient thinks she lost about 3-4 large cups size of blood, she has some sore throat but denies any other pain. She denies chest pain or dyspnea, no headache. No dizziness. No abdominal pain or nausea vomiting Patient feels depressed. Denies suicidal ideation or hallucination On admission patient was tachycardic at 144 and currently at 138 BPM, rest of vitals are stable and patient is afebrile. Blood pressure is 139/62. She has mild leukocytosis of 11.1 K, hemoglobin 10.4, unknown baseline INR is 1.0, chloride slightly elevated at 113, rest of BMP is unremarkable and creatinine 0.5. Liver enzymes elevated EKG showing sinus tachycardia at 148, with QTC 471 Emergency room patient received lorazepam, Afrin and Protonix, tranexamic acid. Nasal packing was done on both nostrils and EGD ENT service were consulted from an EGD. 12/24/2019 Patient is awake and alert, no more epistaxis, ENT evaluated the patient and they kept the nasal pack in the right side and removed from the left side. No more epistaxis. Patient remains tachycardic at 120 after 1 unit of blood transfusion and her hemoglobin went up 9.8 today. She has elevated d-dimer and she feels some dyspnea but no chest pain. TSH was unremarkable. On cardiology on the case, echocardiogram is elevated In view of elevated d-dimer 6 and her symptoms and signs, we recommend patient has CT angios of the chest to rule out PE, risks including but not limited to risk of ALLERGY and nephrotoxicity are explained to the patient and she verbalized understanding and acceptance and she wants to proceed with the test. 12/25/2019 No more epistaxis, nasal pack is still in a Place. She is hemodynamically stable she still slightly tachycardic 99-105. Leukocytosis improvement to 12.4 K, BMP is unremarkable. Grinder Lap evaluated the patient and recommended treatment of anemia and anxiety, also echocardiogram was ordered which is pending Pro-calcitonin is normal. She remains on antibiotic for prophylaxis per ENT team recommendation. We'll ask for PT/OT evaluation for generalized weakness Objective - Vital Signs Vital signs: Vital Signs Temp 98.2 F 12/25/19 04:00 Pulse 93 12/25/19 04:00 Resp 16 12/25/19 04:00 BP 148/73 12/25/19 04:00 Pulse Ox 95 12/25/19 04:00 Intake & Output 12/24/19 12/25/19 12/25/19 18:59 06:59 18:59 Intake Total 600 118 Balance 600 118 Weight 73.4 kg Intake: Oral 600 118 Other: Voiding Method Toilet Toilet # Voids 1 3 - Exam GENERAL: The patient is alert and oriented x3, not in any acute distress. Well developed, well nourished. -HEENT: Pupils are round and equally reacting to light. EOMI. No scleral icterus. No conjunctival pallor. Normocephalic, atraumatic. No pharyngeal erythe ma. No thyromegaly. Right side nasal pack is in place CARDIOVASCULAR: S1 and S2 present. No murmurs, rubs, or gallops. PULMONARY: Chest is clear to auscultation, no wheezing or crackles. ABDOMEN: Soft, nontender, nondistended, normoactive bowel sounds. No palpable organomegaly. MUSCULOSKELETAL: No joint swelling or deformity. EXTREMITIES: No cyanosis, clubbing, or pedal edema. NEUROLOGICAL: Gross neurological examination did not reveal any focal deficits. SKIN: No rashes. No petechiae - Labs CBC & Chem 7: 12/25/19 05:47 12/25/19 05:47 Labs: Abnormal Lab Results - Last 24 Hours (Table) 12/25/19 12/25/19 Range/Units 05:47 05:47 WBC 12.4 H (3.8-10.6) k/uL RBC 2.90 L (3.80-5.40) m/uL Hgb 9.3 L (11.4-16.0) gm/dL Hct 27.9 L (34.0-46.0) % Neutrophils # 8.2 H (1.3-7.7) k/uL Sodium 136 L (137-145) mmol/L Creatinine 0.39 L (0.52-1.04) mg/dL Glucose 107 H (74-99) mg/dL Calcium 8.0 L (8.4-10.2) mg/dL Assessment and Plan Assessment: Epistaxis Sinus tachycardia, secondary to her epistaxis. Rule out PE for cardiac causes Acute blood loss anemia COPD, not acute exacerbation Osteoarthritis Degenerative disc disease of the lumbar and cervical spine Zulema depression, not an active issue Plan: This is a pleasant 59 years old female who presents with epistaxis and tachycardia. Monitor for any signs of bleeding. Monitor hemoglobin, continue with Augmentin, ENT team. The patient for discharge and follow-up as an outpatient. Cardiology consult, echocardiogram, CTA to rule out PE and the chest, Nicotine patch Labs and medication were reviewed.. Continue same treatment. Continue with symptomatic treatment. Resume home medication. Monitor lytes and vitals. DVT and GI prophylaxis. Further recommendations of the clinical course of the patient DVT prophylaxis: No heparin and in view of epistaxis for now GI Prophylaxis: Pepcid
[2019-12-25] MEDS: FAMOTIDINE 20 MG TAB PO SCH (20:32)
[2019-12-25] MEDS: SODIUM CHLORIDE 0.9% 1,000 ML IV SCH (22:00)
[2019-12-26] MEDS: SODIUM CHLORIDE 0.9% 1,000 ML IV SCH ×2 (05:27→06:47)
[2019-12-26] MEDS: FERROUS SULFATE 325 MG TAB PO SCH (06:42)
[2019-12-26 06:53] LABS: Basophils # (A) 0.1 k/uL (0-0.2); Basophils % (A) 0 %; Eosinophils # (A) 0.2 k/uL (0-0.7); Eosinophils % (A) 2 %; HCT 27.8 % (34.0-46.0); HGB 9.2 gm/dL (11.4-16.0); Lymphocytes # (A) 2.4 k/uL (1.0-4.8); Lymphocytes % (A) 22 %; MCH 32.4 pg (25.0-35.0); MCHC 33.2 g/dL (31.0-37.0); MCV 97.4 fL (80.0-100.0); Mean Platelet Volume 7.4; Monocytes # (A) 0.8 k/uL (0-1.0); Monocytes % (A) 7 %; Neutrophils # (A) 7.3 k/uL (1.3-7.7); Neutrophils % (A) 66 %; Platelet Count 258 k/uL (150-450); RBC 2.85 m/uL (3.80-5.40); RDW 15.6 % (11.5-15.5)
[2019-12-26 07:10] LABS: African American GFR (CKD) >90 (>60 ml/min/1.73 sqM); Anion Gap 5 mmol/L; Blood Urea Nitrogen 11 mg/dL (7-17); Calcium 8.2 mg/dL (8.4-10.2); Carbon Dioxide 26 mmol/L (22-30); Chloride 105 mmol/L (98-107); Glucose 106 mg/dL (74-99); Non-African American GFR(CKD) >90 (>60 ml/min/1.73 sqM); Potassium 3.8 mmol/L (3.5-5.1); Sodium 136 mmol/L (137-145)
[2019-12-26] MEDS: NICOTINE 21MG/24HR PATCH TRANSDERM SCH (10:37)
[2019-12-26] MEDS: DULoxetine HCL 60 MG CAPSULE.DR PO SCH (10:37)
[2019-12-26] MEDS: AMOXIC-POT CLAV 500-125 MG 1 EACH TAB PO SCH (10:38)
[2019-12-26] MEDS: FAMOTIDINE 20 MG TAB PO SCH (10:38)
[2019-12-26 13:02] VITALS: RESP 18
[2019-12-26 13:05] VITALS: BP 120/73; PULSE 97; TEMP 98.5
--- NOTE | 2019-12-27 16:43 | ECHOF ---
Referral Reason:LVF MEASUREMENTS -------- HEIGHT: 162.6 cm WEIGHT: 73.9 kg BP: 139/65 IVSd: 1.2 cm (0.6 - 1.1) LVIDd: 3.6 cm (3.9 - 5.3) LVPWd: 1.2 cm (0.6 - 1.1) EDV(Teich): 55 ml IVSs: 1.5 cm LVIDs: 2.2 cm LVPWs: 1.6 cm %IVS Thck: 20 % ESV(Teich): 17 ml EF(Teich): 69 % %FS: 38 % SV(Teich): 38 ml LA Diam: 2.8 cm (2.7 - 3.8) RVIDd: 3.2 cm (< 3.3) LALs A4C: 4.5 cm LAAs A4C: 12.9 cm LAESV A-L A4C: 32 ml LAESV MOD A4C: 27 ml LALs A2C: 4.1 cm LAAs A2C: 12.2 cm LAESV A-L A2C: 30 ml LAESV MOD A2C: 28 ml LAESV(A-L): 32 ml LAESV Index (A-L): 18.09 ml/m Ao Diam: 3.2 cm (2.0 - 3.7) AV Cusp: 2.0 cm (1.5 - 2.6) EPSS: 0.4 cm MV E Daniel: 0.85 m/s MV DecT: 143 ms MV Dec [place]: 5.9 m/s MV A Daniel: 1.02 m/s MV E/A Ratio: 0.83 MV PHT: 42 ms AV Vmax: 1.38 m/s AV maxP.60 mmHg MV EF SLOPE: 121.52 mm/s (70 - 150) MV EXCURSION: 17.31 mm (> 18.000) FINDINGS -------- Resting tachycardia (HR>100bpm). This was a technically adequate study. The left ventricular size is normal. There is borderline concentric left ventricular hypertrophy. Overall left ventricular systolic function is normal with, an EF between 60 - 65 %. The right ventricle is normal in size. Normal LA size by volume 22+/-6 ml/m2. The right atrium is normal in size. Interatrial and interventricular septum intact. The aortic valve is trileaflet and appears structurally normal. The mitral valve is normal. Trace tricuspid regurgitation present. The pulmonic valve was not well visualized. The aortic root size is normal. Normal inferior vena cava with normal inspiratory collapse consistent with estimated right atrial pre ssure of 5 mmHg. There is no pericardial effusion. CONCLUSIONS -------- 1. Resting tachycardia (HR>100bpm). 2. The left ventricular size is normal. 3. There is borderline concentric left ventricular hypertrophy. 4. Overall left ventricular systolic function is normal with, an EF between 60 - 65 %. 5. Trace tricuspid regurgitation present. 6. There is no pericardial effusion. STATE TROOPER: Sissy Byrne RDCS
== END 2019-12-26 16:26 | disposition home or self-care (01) | DRG 151 ==
LOC: EC 02:08 → 4SSUR 05:11 → 3SCARD 06:16
PROVIDERS: ADMIT Hospitalist; ATTEND Hospitalist
PROC: 30233N1 Transfusion of Nonautologous Red Blood Cells into Peripheral Vein, Percutaneous Approach (ICD-10-PCS; principal; 2019-12-23)
PROC: 2Y41X5Z Packing of Nasal Region using Packing Material (ICD-10-PCS; principal; 2019-12-23)
DX: R04.0 Epistaxis (principal); D62 Acute posthemorrhagic anemia; M19.90 Unspecified osteoarthritis, unspecified site; J44.9 Chronic obstructive pulmonary disease, unspecified; I10 Essential (primary) hypertension; F41.9 Anxiety disorder, unspecified; F17.200 Nicotine dependence, unspecified, uncomplicated; D72.829 Elevated white blood cell count, unspecified; F32.9 Major depressive disorder, single episode, unspecified; M50.30 Other cervical disc degeneration, unspecified cervical region; M51.36 Other intervertebral disc degeneration, lumbar region; R00.0 Tachycardia, unspecified; R74.8 Abnormal levels of other serum enzymes; R79.89 Other specified abnormal findings of blood chemistry; Z79.899 Other long term (current) drug therapy; Z90.710 Acquired absence of both cervix and uterus; Z90.49 Acquired absence of other specified parts of digestive tract; Z98.890 Other specified postprocedural states; Z87.01 Personal history of pneumonia (recurrent); Z82.49 Family history of ischemic heart disease and other diseases of the circulatory system; Z83.3 Family history of diabetes mellitus
CPT/HCPCS: 30905; 36415; 71275; 80048; 80053; 83605; 83735; 84145; 84443; 84484; 85025; 85027; 85379; 85610; 85730; 86850; 86870; 86880; 86900; 86901; 86920; 93005; 93306; 96365; 96375; 99284

== ENCOUNTER 2020-01-03 14:09 | Emergency (ER) | payer OTHER ==
[2020-01-03 15:43] LABS: Basophils # (A) 0.1 k/uL (0-0.2); Basophils % (A) 1 %; Eosinophils # (A) 0.2 k/uL (0-0.7); Eosinophils % (A) 2 %; HCT 31.6 % (34.0-46.0); HGB 9.9 gm/dL (11.4-16.0); Hypochromasia Moderate; Lymphocytes # (A) 2.3 k/uL (1.0-4.8); Lymphocytes % (A) 19 %; MCH 30.4 pg (25.0-35.0); MCHC 31.3 g/dL (31.0-37.0); MCV 97.1 fL (80.0-100.0); Mean Platelet Volume 7.1; Monocytes # (A) 0.9 k/uL (0-1.0); Monocytes % (A) 8 %; Neutrophils # (A) 8.2 k/uL (1.3-7.7); Neutrophils % (A) 69 %; Poikilocytosis Slight; RBC 3.26 m/uL (3.80-5.40); RDW 15.4 % (11.5-15.5); WBC 11.9 k/uL (3.8-10.6)
[2020-01-03 15:52] LABS: ALT 15 U/L (4-34); AST 18 U/L (14-36); African American GFR (CKD) >90 (>60 ml/min/1.73 sqM); Albumin 3.7 g/dL (3.5-5.0); Alkaline Phosphatase 81 U/L (38-126); Anion Gap 7 mmol/L; Blood Urea Nitrogen 10 mg/dL (7-17); Calcium 9.1 mg/dL (8.4-10.2); Carbon Dioxide 29 mmol/L (22-30); Chloride 102 mmol/L (98-107); Glucose 99 mg/dL (74-99); Non-African American GFR(CKD) >90 (>60 ml/min/1.73 sqM); Potassium 4.8 mmol/L (3.5-5.1); Sodium 138 mmol/L (137-145); Total Bilirubin 0.5 mg/dL (0.2-1.3); Total Protein 6.6 g/dL (6.3-8.2)
[2020-01-03 15:53] LABS: INR 0.9 (<1.2); Partial Thromboplastin Time 24.5 sec (22.0-30.0); Platelet Count 669 k/uL (150-450); Prothrombin Time 9.9 sec (9.0-12.0)
--- NOTE | 2020-01-03 15:55 | ED ---
General Adult HPI - General Chief complaint: ENT Stated complaint: Vomiting Blood Time Seen by Provider: 01/03/20 14:36 Source: patient, RN notes reviewed, old records reviewed Mode of arrival: EMS - History of Present Illness Initial comments: 59-year-old female patient seen for evaluation of epistaxis. Patient reports that about a week ago she had posterior nosebleed packing which was removed. She reports that she was doing well however today she again began having some nose bleeding and then had some posterior drainage an episode of nausea vomiting. Patient was that the bleeding has stopped at this time. She denies any other acute complaints at this time. Systemic: Pt denies fatigue, fever/chills, rash. Pt denies weakness, night sweats, weight loss. Neuro: Pt denies headache, visual disturbances, syncope or pre-syncope. HEENT: Pt denies ocular discharge or irritation, otalgia, rhinorrhea, pharyngitis or notable lymphadenopathy. Cardiopulmonary: Pt denies chest pain, SOB, heart palpitations, dyspnea on exertion. Abdominal/GI: Pt denies abdominal pain, n/v/d. : Pt denies dysuria, burning w/ urination, frequency/urgency. Denies new onset urinary or bowel incontinence. MSK: Pt denies myalgia, loss of strength or function in extremities. Neuro: Pt denies new onset weakness, paresthesias. - Related Data Home Medications Medication Instructions Recorded Confirmed Gabapentin [Neurontin] 600 mg PO TID 01/18/18 01/03/20 DULoxetine HCL [Cymbalta] 120 mg PO DAILY 12/23/19 01/03/20 Previous Rx's Medication Instructions Recorded Ferrous Sulfate [Iron (65 MG 325 mg PO BID-W/MEALS #60 tab 12/26/19 Elemental)] Nicotine 21Mg/24Hr Patch [Habitrol] 1 patch TRANSDERM DAILY #7 patch 12/26/19 Allergies Allergy/AdvReac Type Severity Reaction Status Date / Time No Known Allergies Allergy Verified 01/03/20 16:06 Review of Systems ROS Statement: Those systems with pertinent positive or pertinent negative responses have been documented in the HPI. ROS Other: All systems not noted in ROS Statement are negative. Past Medical History Past Medical History: COPD, Osteoarthritis (OA), Pneumonia Additional Past Medical History / Comment(s): Chronic lumbar/cervical pain/bulging discs/DDD, 2006 [place]-oophorectomy d/t cyst and had bowel gregorio- resection with colostomy later reversed. History of Any Multi-Drug Resistant Organisms: None Reported Past Surgical History: Appendectomy, Bowel Resection, Section, Hysterectomy Additional Past Surgical History / Comment(s): OOPHERECTOMY WITH NICKED BOWEL A ND HAD COLOSTOMY AND THEN REVERSAL., LAPAROSCOPY, C-SEC X2. pain clinic procedures, COLONOSCOPY Past Anesthesia/Blood Transfusion Reactions: Family History of Problems w/ Anes thesia Additional Past Anesthesia/Blood Transfusion Reaction / Comment(s): father -PONV Past Psychological History: Anxiety, Depression Smoking Status: Current every day smoker - Past Family History Mother Family Medical History: No Reported History Additional Family Medical History / Comment(s): Cardiac disease Father Family Medical History: Diabetes Mellitus, Hypertension Additional Family Medical History / Comment(s): Cardiac disease General Exam - General Exam Comments Initial Comments: Constitutional: NAD, AOX3, Pt has pleasant affect. HEENT: NC/AT, trachea midline, neck supple, no lymphadenopathy. Posterior pharynx non erythematous, without exudates. External ears appear normal, without discharge. Mucous membranes moist. Eyes PERRLA, EOM intact. There is no scleral icterus. No pallor noted. dried blood noted in nares. No active bleeding. Cardiopulmonary: RRR, no murmurs, rubs or gallops, no JVD noted. Lungs CTAB in anterior and posterior rice. No peripheral edema. Abdominal exam: Abdomen soft and non-distended. Abdomen non-tender to palpation in all 4 quadrants. Bowel sounds active in LLQ. No hepatosplenomegaly. No ecchymosis Neuro: CN II-XII grossly intact. No nuchal rigidity. No raccon eyes, no dumont sign, no hemotympanum. No cervical spinal tenderness. MSK: No posterior calf tenderness bilaterally, homans sign negative bilaterally. Posterior tibialis and radial pulse +2 bilaterally. Sensation intact in upper and lower extremities. Full active ROM in upper and lower extremities, 5/5 stregnth. Course Vital Signs 01/03/20 01/03/20 01/03/20 14:21 15:38 16:29 Temperature 97.9 F Pulse Rate 95 84 85 Respiratory 14 14 12 Rate Blood Pressure 110/87 110/67 112/54 O2 Sat by Pulse 97 100 99 Oximetry Medical Decision Making - Medical Decision Making 59-year-old female patient presents to ED for evaluation of epistaxis. Patient reportedly had an episode of epistaxis felt some blood draining and had an episode of nausea and vomiting. Patient vital signs are stable, afebrile. Physical exam displayed dried blood. Laboratory investigations revealed hemoglobin of 9.9 which is around patient's baseline. Patient discharged with outpatient follow-up with her previously established ENT and she will return here if any worsening symptoms. Case discussed with Dr. Rosario. - Lab Data Result diagrams: 01/03/20 15:29 01/03/20 15:29 Lab Results 01/03/20 01/03/20 01/03/20 Range/Units 15:29 15:29 15:29 WBC 11.9 H (3.8-10.6) k/uL RBC 3.26 L (3.80-5.40) m/uL Hgb 9.9 L (11.4-16.0) gm/dL Hct 31.6 L (34.0-46.0) % MCV 97.1 (80.0-100.0) fL MCH 30.4 (25.0-35.0) pg MCHC 31.3 (31.0-37.0) g/dL RDW 15.4 (11.5-15.5) % Plt Count 669 H D (150-450) k/uL Neutrophils % 69 % Lymphocytes % 19 % Monocytes % 8 % Eosinophils % 2 % Basophils % 1 % Neutrophils # 8.2 H (1.3-7.7) k/uL Lymphocytes # 2.3 (1.0-4.8) k/uL Monocytes # 0.9 (0-1.0) k/uL Eosinophils # 0.2 (0-0.7) k/uL Basophils # 0.1 (0-0.2) k/uL Hypochromasia Moderate Poikilocytosis Slight PT 9.9 (9.0-12.0) sec INR 0.9 (<1.2) APTT 24.5 (22.0-30.0) sec Sodium 138 (137-145) mmol/L Potassium 4.8 (3.5-5.1) mmol/L Chloride 102 (98-107) mmol/L Carbon Dioxide 29 (22-30) mmol/L Anion Gap 7 mmol/L BUN 10 (7-17) mg/dL Creatinine 0.50 L (0.52-1.04) mg/dL Est GFR (CKD-EPI)AfAm >90 (>60 ml/min/1.73 sqM) Est GFR (CKD-EPI)NonAf >90 (>60 ml/min/1.73 sqM) Glucose 99 (74-99) mg/dL Calcium 9.1 (8.4-10.2) mg/dL Total Bilirubin 0.5 (0.2-1.3) mg/dL AST 18 (14-36) U/L ALT 15 (4-34) U/L Alkaline Phosphatase 81 (38-126) U/L Total Protein 6.6 (6.3-8.2) g/dL Albumin 3.7 (3.5-5.0) g/dL - EKG Data -: EKG Interpreted by Me (and Dr. Rosario ) EKG Comments: Ventricular rate 92, painful 124, QRS 76, QT/QTC 372/460. Normal sinus rhythm, normal EKG, no concern for acute ischemia at this time. Disposition Clinical Impression: Epistaxis Disposition: HOME SELF-CARE Condition: Stable Instructions (If sedation given, give patient instructions): Nosebleed (ED) Additional Instructions: Follow-up with primary care provider and previously established ENT. Return to ER if any worsening symptoms. Is patient prescribed a controlled substance at d/c from ED?: No Referrals: Jhonny Caballero MD [Primary Care Provider] - 1-2 days
[2020-01-03 16:31] VITALS: BP 112/54; PULSE 85; RESP 12
[2020-01-03 16:55] VITALS: TEMP 98
== END 2020-01-03 16:55 | disposition home or self-care (01) ==
LOC: EC 14:09
DX: R04.0 Epistaxis (principal); F17.200 Nicotine dependence, unspecified, uncomplicated; F41.9 Anxiety disorder, unspecified; F32.9 Major depressive disorder, single episode, unspecified; Z79.899 Other long term (current) drug therapy
CPT/HCPCS: 36415; 80053; 85025; 85610; 85730; 93005; 99284

== ENCOUNTER → 2021-05-16 | Outpatient (CLI) | payer OTHER ==
[2021-05-16 16:09] LABS: ALT 15 U/L (8-44); AST 16 U/L (13-35); LDL Cholesterol,Calculated 164.4 mg/dL (0.0-131.0)
== END | disposition home or self-care (01) ==
LOC: LABWHC1 09:39
PROVIDERS: ATTEND Internal Medicine
DX: E78.2 Mixed hyperlipidemia (principal)
CPT/HCPCS: 36415; 80061; 84450; 84460

== ENCOUNTER 2021-06-13 07:34 | Day surgery (SDC) | payer OTHER ==
[2021-06-11 11:48] VITALS: BMI 28.3
[~2021-06-13 07:34] MED LIST changes: +ALPRAZolam 0.25 MG TAB PO PRN; +ALPRAZolam 0.5 MG TAB PO PRN; +ASPIRIN 325 MG TAB PO STA; +ATORVASTATIN 80 MG TAB PO STA; +HEPARIN SODIUM,PORCINE 10,000 UNIT in SODIUM CHLORIDE 0.9% 1,000 ML IRRIGATION PRN; +HEPARIN SODIUM,PORCINE 2,500 UNIT in SODIUM CHLORIDE 0.9% 250 ML IRRIGATION PRN; +NITROGLYCERIN SL TABS 0.4 MG TAB SUBLINGUAL PRN; +SODIUM CHLORIDE 0.9% 1,000 ML in EMPTY BAG 1 BAG IV SCH; -SODIUM CHLORIDE 0.9% 500 ML 500 ML IV SCH
[2021-06-13 08:17] VITALS: TEMP 98.6
[2021-06-13] MEDS ORDERED: fentaNYL (PF) 50 MCG/ML 2 ML AMP ONE (10:37)
[2021-06-13] MEDS ORDERED: LIDOCAINE 1% INJ 10MG/ML (20 ML MDV) ONE (10:39)
[2021-06-13] MEDS ORDERED: VERAPAMIL 2.5 MG/ML 2 ML AMP ONE (10:39)
[2021-06-13] MEDS ORDERED: MIDAZOLAM 2 MG/2 ML VIAL IV ONE (10:42)
[2021-06-13] MEDS ORDERED: fentaNYL (PF) 50 MCG/ML 2 ML AMP IV ONE ×2 (10:43)
[2021-06-13] MEDS ORDERED: LIDOCAINE 1% INJ 10MG/ML (20 ML MDV) SQ ONE (10:45)
[2021-06-13] MEDS ORDERED: VERAPAMIL SYRINGE (5 MG/10 ML) INTRAARTER ONE (10:46)
[2021-06-13] MEDS ORDERED: HEPARIN SODIUM 1,000 UN/ML (10ML VL) ONE (10:48)
[2021-06-13] MEDS ORDERED: IOPAMIDOL-370 125ML BTL INJ ONE (10:57)
[2021-06-13 14:00] VITALS: BP 120/56; PULSE 74; RESP 16
--- NOTE | 2021-06-13 21:28 | P.CARDCATH ---
Description of Procedure: PROCEDURES PERFORMED: Left heart catheterization, bilateral coronary angiography INDICATION: Persistent chest pain concerning for angina HISTORY: Patient is pleasant 60-year-old female with history of tobacco abuse shortness breath, epistaxis, chest pain. Patient has been having off-and-on somewhat atypical chest pain however does have numerous risk factors and has been having chest pain it feels like an elephant on her chest and occasionally has been improving with nitroglycerin. She had workup with normal Lexiscan stress test February 2020 and also underwent dobutamine stress echo which was suboptimal given inability to reach 85% maximum predicted heart rate however no inducible ischemia. Given ongoing symptoms with possibility of obstructive CAD heart catheterization was recommended. CONSENT:I have discussed the risks, benefits and alternative therapies for the above-mentioned procedure and for both sedation/analgesia as well as necessary blood product administration, if indicated, as they pertain to this patient. The patient has indicated understanding and acceptance of the risks and procedures discussed. PROCEDURE: After the risks, benefits and alternatives of the above mentioned procedure explained in detail with the patient, informed consent was obtained. Patient was taken to the catheterization lab and prepped and draped in usual fashion. 1% lidocaine was used to anesthetize the right radial artery. A 6- Lithuanian sheath was placed in the right radial artery using modified Seldinger technique. Left coronary angiography was performed with a 5-Lithuanian JL 3.5 catheter and right coronary angiography was performed with a 5-Lithuanian JR5 catheter in various views. A 5-Lithuanian FR5 catheter was inserted into the left ventricle and pressure measurements were obtained. The right radial sheath was removed and a TR band was placed with hemostasis achieved. The patient tolerated the procedure well. Patient was transported back to the post catheterization holding area in stable condition. Conscious Sedation: Patient was monitored under the direct supervision of vision of myself for conscious sedation using Versed and fentanyl for a total duration of 13 minutes HEMODYNAMICS: Edilberto: 142/76 LAD: 128/8, LVEDP 17 SELECTIVE CORONARY ARTERIOGRAPHY: LEFT MAIN: The left main is a large caliber vessel which bifurcates into the LAD and circumflex. There is no significant stenosis. LEFT ANTERIOR DESCENDING CORONARY ARTERY: LAD is a large caliber vessel which wraps around to the apex. There is no significant stenosis. LEFT CIRCUMFLEX CORONARY ARTERY: Left circumflex is a moderate caliber vessel without significant stenosis. RIGHT CORONARY ARTERY: The right coronary artery is a large caliber vessel which gives off a PDA and PLV branch and is the dominant vessel. There is no significant stenosis. FINAL IMPRESSION: 1. Normal coronary arteries as described above. 2. Mildly elevated left sided filling pressures PLAN: 1. Aggressive risk factor modification per most recent ACC/AHA guidelines. 2. Follow-up in the office in 1-2 weeks. Patient states she was getting some relief with nitroglycerin which may be consistent with microvascular dysfunction or other etiologies such as esophageal spasm.
== END 2021-06-13 14:30 | disposition home or self-care (01) ==
LOC: CATHCVL 07:34
PROVIDERS: ATTEND Internal Medicine
DX: I20.0 Unstable angina (principal); R94.39 Abnormal result of other cardiovascular function study; R00.0 Tachycardia, unspecified; I70.203 Unspecified atherosclerosis of native arteries of extremities, bilateral legs; J44.9 Chronic obstructive pulmonary disease, unspecified; I10 Essential (primary) hypertension; Z82.49 Family history of ischemic heart disease and other diseases of the circulatory system; Z72.0 Tobacco use; Z79.899 Other long term (current) drug therapy; Z20.822 Contact with and (suspected) exposure to COVID-19
CPT/HCPCS: 93458; 87635; C1894; C1769; J2250; J2001; J3010; J1644; Q9967

== ENCOUNTER → 2024-03-08 | Outpatient (CLI) | payer OTHER ==
--- NOTE | 2024-03-21 22:07 | P.PCN ---
Date of Procedure: 03/08/24 Operative Findings: Home sleep study report Date of service 03/08/2024 History 64-year-od female patient, known history of COPD with an FEV1 of 65% of predicted along with history of chronic anxiety and depression. The patient is a chronic smoker. The patient has been also noted to snore and stop breathing by her boyfriend. She gasps for air and she does have symptoms of excessive daytime sleepiness. Based on that, a home sleep study was ordered Pertinent physical findings Height is 5 feet and 4 inches and weight is 162 pounds with a body mass index of 27.8 Technical description The [employer] system was used to complete his home sleep study. This is a type III home sleep study evaluation. The total recording duration was 8 hours and 7 minutes. This study started at 9:08 PM and ended at 5:15 AM. There was a total of 7 hours and 54 minutes of flow monitoring and 7 hours and 57 minutes of oxygen saturation monitoring. Results The respiratory analysis showed a total of 12 obstructive apneas and 65 obstructive hypopneas and the resulting AHI was 9.7 consistent with mild obstr uctive sleep apnea Oxygenation analysis The baseline pulse ox while the patient was awake was 96% room air oxygen. Average pulse ox during sleep was 92% and the minimum pulse ox was 86% during sleep. The patient spent approximately 31 minutes of sleep time below pulse ox of 89% Cardiac summary Average heart rate was 77 with a minimum heart of 65 and a maximum heart rate of 99 Assessment Mild OLINDA with an AHI of 9.7 Mild nocturnal oxygen desaturations secondary to OLINDA COPD Chronic anxiety Chronic depression Plan Discussed findings with the patient. Decision to treat this patient with large depend on the patient's symptoms and extent of chronic hypersomnia and sleep fragmentation. Suggest to proceed with CPAP therapy the patient is willing to undertake the treatment for mild sleep apnea. Encourage weight loss, maintain good sleep hygiene measures. Maintain regular sleep schedule. Will continue to follow.
== END ==
LOC: 3 N SLEEP 16:50
PROVIDERS: ATTEND Internal Medicine Critical Care Medicine
DX: G47.33 Obstructive sleep apnea (adult) (pediatric) (principal); G47.36 Sleep related hypoventilation in conditions classified elsewhere; J44.9 Chronic obstructive pulmonary disease, unspecified; F41.9 Anxiety disorder, unspecified; F32.A Depression, unspecified; F17.200 Nicotine dependence, unspecified, uncomplicated; Z79.899 Other long term (current) drug therapy